=== PATIENT | female | born 1965 | race Caucasian/White ===

== ENCOUNTER → 2017-01-19 | Outpatient (CLI) | payer OTHER ==
--- NOTE | 2017-01-19 09:19 | WOMENS IMAGING REPORT ---
EXAM DESCRIPTION: BILAT SCREENING MAMMO W/CAD COMPLETED DATE/TIME: 01/19/2017 8:36 am REASON FOR STUDY: Z12.31, ROUTINE SCREENING MAMMO Z12.31 ENCNTR SCREEN MAMMOGRAM FOR MALIGNANT NEOP LASM OF KRIS COMPARISON: November 2015 TECHNIQUE: Standard craniocaudal and mediolateral oblique views of each breast recorded using [place] l acquisition. LIMITATIONS: None. FINDINGS: No masses, calcifications or architectural distortion. No areas of suspicion. Read with the assistance of CAD. .[facility] - R2 Cenova Version 1.3 .[facility] - R2 Cenova Version 1.3 .[facility] - R2 Cenova Version 2.4 .[facility] [place]2 Cenova Version 2.4 .[facility] - R2 Returned Item Clerk Version 9.2 IMPRESSION: NORMAL MAMMOGRAM. BIRADS 1. BREAST DENSITY: b. There are scattered areas of fibroglandular density. BIRAD: 1 NEGATIVE RECOMMENDATION: ROUTINE SCREENING COMMENT: The patient has been notified of the results by letter per MQSA requirements. Additional no tification policies are in place for contacting patient with suspicious or incomplete findings. Quality ID #[id number]: The [employer] recommends an annual screening mammogram for women aged 40 years or over. This facility utilizes a reminder system to ensure that all patients receive reminder letters, and/or direct phone calls for appointments. This includes reminders for routine scr eening mammograms, diagnostic mammograms, or other Breast Imaging Interventions when appropriate. Th is patient will be placed in the appropriate reminder system. The [employer] (ACR) has developed recommendations for screening MRI of the breast s in certain patient populations, to be used in conjunction with mammography. Breast MRI surveillanc e may be appropriate for women with more than 20% lifetime risk of developing breast cancer as deter mined by genetic testing, significant family history of the disease, or history of mantle radiation f or Hodgkins Disease. ACR Practice Guidelines 2008. TECHNICAL DOCUMENTATION: FINDING NUMBER: (1) ASSESSMENT: (1) JOB ID: [id number] [employer]- All Rights Reserved
== END ==
LOC: WI 11:24
PROVIDERS: ATTEND Physician Assistant
DX: Z12.31 Encounter for screening mammogram for malignant neoplasm of breast (principal)
CPT/HCPCS: 77067; G0202

== ENCOUNTER → 2017-01-28 | Outpatient (CLI) | payer OTHER ==
--- NOTE | 2017-01-28 10:37 | WOMENS IMAGING REPORT ---
EXAM DESCRIPTION: BONE DENSITY HIP/SPINE COMPLETED DATE/TIME: 01/28/2017 8:52 am REASON FOR STUDY: OSTEOPOROSIS; M81.0 M81.0 AGE-RELATED OSTEOPOROSIS W/O CURRENT PATHOLOGICAL FRAC COMPARISON: None. TECHNIQUE: Dual-Energy X-ray Absorptiometry (DEXA) of the AP Spine and Hip. LIMITATIONS: None. FINDINGS: LUMBAR SPINE: The bone mineral density (BMD) measured from L1-L4 in the AP projection correlates with a T-score of -0.2, which is normal as defined by the World Health Organization. HIP: The bone mineral density (BMD) measured in the left hip correlates with a T-score of -1.5, which is o steopenia as defined by the World Health Organization. IMPRESSION: 1. LUMBAR SPINE: NORMAL. 2. HIP: OSTEOPENIA. COMMENT: The World Health Organization defines low BMD as follows: T-score: Normal: Greater than -1.0 Osteopenia: Between -1.0 and -2.5 Osteoporosis: Less than -2.5 without fractures Established osteoporosis: Less than -2.5 with fractures In general, you may wish to consider: Diagnosis Treatment Follow-up DEXA Normal BMD Prevention 2-3 years Osteopenia Prevention/Therapy 1-2 years Osteoporosis Therapy Yearly TECHNICAL DOCUMENTATION: JOB ID: [id number] [employer]- All Rights Reserved
== END ==
LOC: WI 08:27
PROVIDERS: ATTEND Physician Assistant
DX: M81.0 Age-related osteoporosis without current pathological fracture (principal)
CPT/HCPCS: 77080

== ENCOUNTER 2017-01-31 00:23 | Observation (INO) | payer OTHER ==
--- NOTE | 2017-01-31 00:57 | ER Document Report ---
ED Medical Screen (RME) - General Chief Complaint: Chest Pain Stated Complaint: CHEST PAIN Time Seen by Provider: 01/31/17 00:53 Mode of Arrival: Wheelchair Information source: Patient Notes: 51-year-old female presents to ED for chest pain epigastric pain dizziness since 4 PM. She states the pain radiates to her left chest up to her jaw making her teeth hurt. She states she was just diagnosed with atrial fib but has not seen a specialist. She states she has been nauseated with diarrhea since 4 PM also. Patient has a history of high blood pressure and cholesterol. States mom and dad both have a history of [facility] patient is actively vomiting in the [place]. I have greeted and performed a rapid initial assessment of this patient. A comprehensive ED assessment and evaluation of the patient, analysis of test results and completion of medical decision making process will be conducted by an additional ED providers. TRAVEL OUTSIDE OF THE [place] IN LAST 30 DAYS: No - Related Data Allergies/Adverse Reactions: No Known Allergies Allergy (Verified 04/18/16 16:24) Past Medical History - Past Medical History Cardiac Medical History: Reports: Hx Hypercholesterolemia Denies: Hx Coronary Artery Disease, Hx Heart Attack, Hx Hypertension Pulmonary Medical History: Reports: Hx Asthma Denies: Hx Bronchitis, Hx COPD, Hx Pneumonia, Hx Tuberculosis Neurological Medical History: Denies: Hx Cerebrovascular Accident, Hx Seizures Endocrine Medical History: Reports: Hx Hypothyroidism Renal/ Medical History: Denies: Hx Peritoneal Dialysis Musculoskeltal Medical History: Reports Hx Arthritis Psychiatric Medical History: Reports: Hx Anxiety, Hx Depression Past Surgical History: Reports: Hx Hysterectomy - Immunizations Hx Diphtheria, Pertussis, Tetanus Vaccination: Yes Physical Exam - Vital signs Vitals: Pulse 107 H 01/31/17 00:36 Course - Vital Signs Vital signs: Temp Pulse Resp BP Pulse Ox 107 H 01/31/17 00:36
[2017-01-31] MEDS ORDERED: ONDANSETRON HCL INJ/PF 4 MG/2 ML SDV IM ONE (00:58)
[2017-01-31 02:14] LABS: APPEARANCE,URINE SLIGHTLY-CLOUDY; BILIRUBIN,URINE NEGATIVE (NEGATIVE); GLUCOSE, URINE NEGATIVE (NEGATIVE); KETONES,URINE NEGATIVE (NEGATIVE); LEUKOCYTE ESTERASE,URINE TRACE (NEGATIVE); NITRITE,URINE NEGATIVE (NEGATIVE); PROTEIN,URINE NEGATIVE (NEGATIVE); URINE SPECIFIC GRAVITY 1.017; UROBILINOGEN,URINE NEGATIVE mg/dL (<2.0)
[2017-01-31 02:19] LABS: ALANINE AMINOTRANSFERASE 47 U/L (9-52); ALBUMIN 4.6 g/dL (3.5-5.0); ALKALINE PHOSPHATASE 94 U/L (38-126); ANION GAP 13 (5-19); ASPARTATE AMINO TRANSFERASE 39 U/L (14-36); BILIRUBIN,DIRECT 0.3 mg/dL (0.0-0.4); BILIRUBIN,TOTAL 0.5 mg/dL (0.2-1.3); BLOOD UREA NITROGEN 16 mg/dL (7-20); CALCIUM 9.9 mg/dL (8.4-10.2); CARBON DIOXIDE 22 mmol/L (22-30); CHLORIDE 105 mmol/L (98-107); CREATINE KINASE 38 U/L (30-135); GLUCOSE 100 mg/dL (75-110); LIPASE 140.8 U/L (23-300); POTASSIUM 4.1 mmol/L (3.6-5.0); SODIUM 140.1 mmol/L (137-145); TOTAL PROTEIN 7.6 g/dL (6.3-8.2)
[2017-01-31 02:26] LABS: ABSOLUTE LYMPHOCYTES (AUTO) 3.2 10^3/uL (0.5-4.7); ABSOLUTE MONOCYTES (AUTO) 0.6 10^3/uL (0.1-1.4); ABSOLUTE NEUT (AUTO) 5.3 10^3/uL (1.7-8.2); BASOPHILS % (AUTO) 0.2 % (0-2); EOSINOPHILS % (AUTO) 0.1 % (0-6); HEMATOCRIT 40.1 % (36.0-47.0); HEMOGLOBIN 13.5 g/dL (12.0-15.5); HGB HCT DIFFERENCE 0.4; LYMPHOCYTES % (AUTO) 34.6 % (13-45); MEAN CORPUSCULAR HEMOGLOBIN 29.6 pg (27.0-33.4); MEAN CORPUSCULAR HGB CONC 33.6 g/dL (32.0-36.0); MEAN CORPUSCULAR VOLUME 88 fl (80-97); MONOCYTES % (AUTO) 7.1 % (3-13); RED BLOOD COUNT 4.56 10^6/uL (3.72-5.28); RED CELL DISTRIBUTION WIDTH 13.9 % (11.5-14.0); WHITE BLOOD COUNT 9.1 10^3/uL (4.0-10.5)
[2017-01-31 02:33] LABS: CREATINE KINASE MB < 0.22 ng/mL (<4.55); TROPONIN I < 0.012 ng/mL
--- NOTE | 2017-01-31 02:47 | ER Document Report ---
ED General - General Chief Complaint: Chest Pain Stated Complaint: CHEST PAIN Time Seen by Provider: 01/31/17 00:53 Mode of Arrival: Wheelchair Notes: Patient is a 51-year-old female presents with complaints of chest pain that is substernal and radiates into the left jaw and down her left arm and into her back. She says is been intermittent throughout the day. It is worse when she gets up and exerts herself. No pain. Some nausea. No diarrhea. No history of coronary disease. She says that her cholesterol did come back high recently at with her visit to her doctor. She is therefore been referred to a specialist. She does have a history of lupus. She is followed by Dr. Constantino and Marisol Nguyen. No previous history of heart cath or stress test. Patient took aspirin at 5 PM today. TRAVEL OUTSIDE OF THE [place] IN LAST 30 DAYS: No - Related Data Allergies/Adverse Reactions: No Known Allergies Allergy (Verified 04/18/16 16:24) Past Medical History - General Information source: Patient - Social History Smoking Status: Never Smoker Frequency of alcohol use: None Drug Abuse: None Family History: None, Reviewed & Not Pertinent Patient has suicidal ideation: No Patient has homicidal ideation: No - Past Medical History Cardiac Medical History: Reports: Hx Hypercholesterolemia Denies: Hx Coronary Artery Disease, Hx Heart Attack, Hx Hypertension Pulmonary Medical History: Reports: Hx Asthma Denies: Hx Bronchitis, Hx COPD, Hx Pneumonia, Hx Tuberculosis Neurological Medical History: Denies: Hx Cerebrovascular Accident, Hx Seizures Endocrine Medical History: Reports: Hx Hypothyroidism Renal/ Medical History: Denies: Hx Peritoneal Dialysis Musculoskeltal Medical History: Reports Hx Arthritis Psychiatric Medical History: Reports: Hx Anxiety, Hx Depression Past Surgical History: Reports: Hx Hysterectomy - Immunizations Hx Diphtheria, Pertussis, Tetanus Vaccination: Yes Hx Pneumococcal Vaccination: 07/04/12 Review of Systems - Review of Systems Notes: My Normal Review Basic REVIEW OF SYSTEMS: CONSTITUTIONAL : Denies fever, chills, or sweats. Denies recent illness. CARDIOVASCULAR: intermittent chest pain. RESPIRATORY: Denies cough, cold, or chest congestion. Denies shortness of breath, difficulty breathing, or wheezing. GASTROINTESTINAL: Denies abdominal pain. Denies nausea, vomiting, or diarrhea. Denies constipation. Last BM: GENITOURINARY: Denies difficulty urinating, painful urination, burning, frequency, or blood in urine. MUSCULOSKELETAL: Denies neck or back pain or joint pain or swelling. SKIN: Denies rash or skin lesions. NEUROLOGICAL: Denies altered mental status or loss of consciousness. Has a headache. Denies weakness or paralysis or loss of use of either side. Denies problems with gait or speech. Denies sensory or motor loss. ALL OTHER SYSTEMS REVIEWED AND NEGATIVE. Physical Exam - Vital signs Vitals: Temp Pulse Resp BP Pulse Ox 97.4 F 99 16 151/84 H 98 01/31/17 00:25 01/31/17 00:25 01/31/17 00:25 01/31/17 00:25 01/31/17 00:25 - Notes Notes: General Appearance: Well nourished, alert, cooperative, no acute distress, no obvious discomfort. Vitals: reviewed, See vital signs table. Head: no swelling or tenderness to the head Eyes: PERRL, EOMI, Conjuctiva clear Mouth: No decreasd moisture Chest wall: No reproducible pain to palpation of anterior chest wall. Lungs: No wheezing, No rales, No rhonci, No accessory muscle use, good air exchange bilaterally. Heart: Normal rate, Regular rythm, No murmur, no rub Abdomen: Normal BS, soft, No rigidity, No abdominal tenderness, No guarding, no rebound, no abdominal masses, no organomegaly Extremities: strength 5/5 in all extremities, good pulses in all extremities, no swelling or tenderness in the extremities, no edema. Skin: warm, dry, appropriate color, no rash Neuro: speech clear, oriented x 3, normal affect, responds appropriately to questions. Course - Re-evaluation Re-evalutation: 01/31/17 04:13 Patient complains to me of substernal chest pain rates into her jaw and into her left arm. Cardiac enzymes are negative. She did have some vomiting in the waiting room. Currently she has no pain to palpation of abdomen on my exam. She had slight pain for the nurse practitioner. She says her pain is sharp and intermittent and seems to be worse with exertion and she gets short of breath. Symptoms sound consistent possible coronary disease. Patient took aspirin prior to arrival. She is currently pain-free well-placed Nitropaste on her being that she says the pain will still sometimes intermittently occur. She is a private patient of Dr. Constantino. I did speak with Dr. Cary who agrees to accept the patient on behalf of Dr. Constantino. Dictation of this chart was performed using voice recognition software; therefore, there may be some unintended grammatical errors. 01/31/17 04:15 - Vital Signs Vital signs: Temp Pulse Resp BP Pulse Ox 97.4 F 107 H 8 L 126/68 H 97 01/31/17 00:25 01/31/17 00:36 01/31/17 04:01 01/31/17 04:01 01/31/17 04:01 - Laboratory Result Diagrams: 01/31/17 01:25 01/31/17 01:25 Laboratory results interpreted by me: 01/31/17 01/31/17 01:25 01:25 AST 39 H Ur Leukocyte Esterase TRACE H - EKG Interpretation by Me Additional EKG results interpreted by me: 01/31/17 02:46 EKG is reviewed and interpreted by me. EKG shows normal sinus rhythm with a rate of [address] segment elevation or depression. No ischemic T-wave inversions. NC interval, QRS duration, QTc intervals are within normal range. Old EKG for comparison is from November 08, 2014. Discharge - Discharge Clinical Impression: Chest pain Qualifiers: Chest pain type: unspecified Qualified Code(s): R07.9 - Chest pain, unspecified Condition: Stable Disposition: ADMITTED OBSERVATION Admitting Provider: Dougie Unit Admitted: Telemetry
--- NOTE | 2017-01-31 03:32 | EKG REPORT ---
SEVERITY:- ABNORMAL ECG - SINUS RHYTHM LEFT ATRIAL ABNORMALITY NONSPECIFIC T ABNORMALITIES, INFERIOR LEADS : Confirmed by: Kiara Olivas MD 31-Jan-2017 03:31:31
[2017-01-31] MEDS ORDERED: NITROGLYCERIN 2% OINTMENT 1 GM PACKET TP ONE (04:11)
--- NOTE | 2017-01-31 04:20 | RADIOLOGY REPORT (SQ) ---
EXAM DESCRIPTION: CHEST PA/LAT COMPLETED DATE/TIME: 01/31/2017 3:58 am REASON FOR STUDY: chest pain COMPARISON: 11/08/2014. EXAM PARAMETERS: NUMBER OF VIEWS: two views TECHNIQUE: Digital Frontal and Lateral radiographic views of the chest acquired. RADIATION DOSE: NA LIMITATIONS: none FINDINGS: LUNGS AND PLEURA: No opacities, masses or pneumothorax. No pleural effusion. MEDIASTINUM AND HILAR STRUCTURES: No masses or contour abnormalities. HEART AND VASCULAR STRUCTURES: Heart normal size. No evidence for failure. BONES: No acute findings. HARDWARE: None in the chest. OTHER: No other significant finding. IMPRESSION: NO SIGNIFICANT RADIOGRAPHIC FINDING IN THE CHEST. TECHNICAL DOCUMENTATION: JOB ID: [id number] [employer]- All Rights Reserved
[2017-01-31 08:03] LABS: CREATINE KINASE MB < 0.22 ng/mL (<4.55); TROPONIN I < 0.012 ng/mL
[2017-01-31 14:50] LABS: CREATINE KINASE MB < 0.22 ng/mL (<4.55); TROPONIN I < 0.012 ng/mL
[2017-01-31] MEDS ORDERED: ONDANSETRON 4 MG TAB.RAPDIS PO PRN (20:11)
[2017-01-31] MEDS ORDERED: BUDESONIDE/FORMOTEROL 80-4.5 MCG 60 PUFF/6.9 GM MDI IH PRN (20:11)
[2017-01-31] MEDS ORDERED: IPRATROPIUM/ALBUTEROL 0.5-2.5 MG/3 ML AMPUL NEB PRN (20:13)
[2017-01-31] MEDS: OXYCODONE HCL IR 5 MG TABLET PO SCH (21:36)
[2017-01-31] MEDS: HYDROXYZINE PAMOATE 25 MG CAPSULE PO SCH (21:36)
[2017-01-31 21:53] LABS: CREATINE KINASE MB < 0.22 ng/mL (<4.55); TROPONIN I < 0.012 ng/mL
[2017-01-31] MEDS ORDERED: (PENDING PHARMACY ID) (Hydroxyzine Hcl [Hydroxyzine Hcl] 25 MG) PO SCH (22:00)
[2017-02-01] MEDS: OXYCODONE HCL IR 5 MG TABLET PO SCH ×6 (01:44→22:22)
[2017-02-01 03:03] LABS: CREATINE KINASE MB < 0.22 ng/mL (<4.55); TROPONIN I < 0.012 ng/mL
--- NOTE | 2017-02-01 08:03 | EKG REPORT ---
SEVERITY:- NORMAL ECG - SINUS RHYTHM : Confirmed by: Rory Montgomery MD 01-Feb-2017 08:02:59
--- NOTE | 2017-02-01 08:45 | PDOC H&P ---
History of Present Illness Admission Date/PCP: 01/31/17 06:26 OTONIEL ZARCO MD Patient complains of: Chest pain History of Present Illness: VEORNICA ZARATE is a 51 year old female This is a 51-year-old female with a significant history of the anxiety and the depression with recently have a some more allergy testings and off the certain depression medicationsCame to the emergency department with a complaint of chest pain for more than 24 hours describing when the left-sided and radiating to the left arm.In the emergency department initial EKG and cardiac enzyme was all negative and patient was decided to admit for rule out acute coronary syndromePatient was also giving nitro patch which according to the patient's to relieve the symptoms Patient's otherwise denied chest pain when I saw to the floor denied any shortness of the breath Past Medical History Cardiac Medical History: Reports: Hyperlipidema Denies: Coronary Artery Disease, Myocardial Infarction, Hypertension Pulmonary Medical History: Reports: Asthma Denies: Bronchitis, Chronic Obstructive Pulmonary Disease (COPD), Pneumonia, Tuberculosis Neurological Medical History: Denies: Seizures Endocrine Medical History: Reports: Hypothyroidism Musculoskeltal Medical History: Reports: Arthritis Psychiatric Medical History: Reports: Depression, General Anxiety Disorder Hematology: Denies: Anemia Past Surgical History Past Surgical History: Reports: Hysterectomy Social History Smoking Status: Never Smoker Frequency of Alcohol Use: None Hx Recreational Drug Use: No Drugs: None Hx Prescription Drug Abuse: No - Advance Directive Resuscitation Status: Full Code Family History Family History: None, Reviewed & Not Pertinent Parental Family History Reviewed: Yes Children Family History Reviewed: Yes Sibling(s) Family History Reviewed.: Yes Medication/Allergy Home Medications: Estrogens, Conjugated [Premarin 0.9 mg Tablet] 0.9 mg PO DAILY 09/17/13 Sertraline HCl 100 mg PO DAILY 09/17/13 Budesonide/Formoterol Fumarate [Symbicort HFA 80-4.5 mcg Inhaler 6.9 gm] 2 puff IH BID PRN 11/08/14 Levothyroxine Sodium [Synthroid 0.025 mg Tablet] 100 mcg PO DAILY 11/08/14 Oxycodone HCl 5 mg PO Q4H 11/24/15 Aspirin [Ecotrin] 81 mg PO DAILY 11/25/15 Gabapentin [Gabapentin] 800 mg PO DAILY 01/31/17 Hydroxychloroquine Sulfate [Plaquenil 200 mg Tablet] 200 mg PO BID 01/31/17 Hydroxyzine HCl [Hydroxyzine HCl] 25 mg PO QID 01/31/17 Ondansetron [Ondansetron Odt] 4 mg PO Q8HP PRN 01/31/17 Prednisone [Prednisone] 5 mg PO DAILY 01/31/17 Selenium Sulfide [Selenium Sulfide] 1 applic TOP TID 01/31/17 Allergies/Adverse Reactions: No Known Allergies Allergy (Verified 04/18/16 16:24) Review of Systems Constitutional: PRESENT: fatigue. ABSENT: chills, fever(s), headache(s), weight gain, weight loss Eyes: ABSENT: visual disturbances Ears: ABSENT: hearing changes Cardiovascular: PRESENT: chest pain. ABSENT: dyspnea on exertion, edema, orthropnea, palpitations Respiratory: ABSENT: cough, hemoptysis Gastrointestinal: ABSENT: abdominal pain, constipation, diarrhea, hematemesis, hematochezia, nausea, vomiting Genitourinary: ABSENT: dysuria, hematuria Musculoskeletal: ABSENT: joint swelling Integumentary: ABSENT: rash, wounds Neurological: ABSENT: abnormal gait, abnormal speech, confusion, dizziness, focal weakness, syncope Psychiatric: PRESENT: anxiety, depression. ABSENT: homidical ideation, suicidal ideation Endocrine: ABSENT: cold intolerance, heat intolerance, menstrual abnormalities, polydipsia, polyuria Hematologic/Lymphatic: ABSENT: easy bleeding, easy bruising, lymphadenopathy Physical Exam Vital Signs: Temp Pulse Resp BP Pulse Ox 97.7 F 66 14 115/62 97 02/01/17 08:00 02/01/17 08:11 02/01/17 08:11 02/01/17 08:00 02/01/17 08:11 Intake & Output 01/31/17 02/01/17 02/02/17 06:59 06:59 06:59 Intake Total 842 Output Total 1300 Balance -458 Weight 73.9 kg General appearance: PRESENT: no acute distress, well-developed, well-nourished Head exam: PRESENT: atraumatic, normocephalic Eye exam: PRESENT: conjunctiva pink, EOMI, PERRLA. ABSENT: scleral icterus Ear exam: PRESENT: normal external ear exam Mouth exam: PRESENT: moist, tongue midline Neck exam: PRESENT: full ROM. ABSENT: carotid bruit, JVD, lymphadenopathy, thyromegaly Respiratory exam: PRESENT: clear to auscultation immanuel Cardiovascular exam: PRESENT: RRR. ABSENT: diastolic murmur, rubs, systolic murmur Pulses: PRESENT: normal dorsalis pedis pul, +2 pedal pulses bilateral Vascular exam: PRESENT: normal capillary refill GI/Abdominal exam: PRESENT: normal bowel sounds, soft. ABSENT: distended, guarding, mass, organolmegaly, rebound, tenderness Rectal exam: PRESENT: deferred Neurological exam: PRESENT: alert, awake, oriented to person, oriented to place , oriented to time, oriented to situation, CN II-XII grossly intact. ABSENT: motor sensory deficit Psychiatric exam: PRESENT: appropriate affect, normal mood. ABSENT: homicidal ideation, suicidal ideation Skin exam: PRESENT: dry, intact, warm. ABSENT: cyanosis, rash Results Laboratory Results: 01/31/17 01/31/17 01/31/17 07:12 07:12 14:02 Creatine Kinase 30 27 L CK-MB (CK-2) < 0.22 Troponin I < 0.012 01/31/17 01/31/17 01/31/17 14:02 20:35 20:35 Creatine Kinase 27 L CK-MB (CK-2) < 0.22 < 0.22 Troponin I < 0.012 < 0.012 02/01/17 02/01/17 02:25 02:25 Creatine Kinase 25 L CK-MB (CK-2) < 0.22 Troponin I < 0.012 Impressions: Chest X-Ray 01/31/17 00:58 IMPRESSION: NO SIGNIFICANT RADIOGRAPHIC FINDING IN THE CHEST. Assessment & Plan - Diagnosis (1) Chest pain Qualifiers: Chest pain type: unspecified Qualified Code(s): R07.9 - Chest pain, unspecified Is this a current diagnosis for this admission?: YesPlan: Most likely a noncardiac but without some risk factor will consult the cardiology patient scheduled for the stress test today and echo todayPatient's d -dimer is also negative (2) Hypertension Qualifiers: Hypertension type: essential hypertension Qualified Code(s): I10 - Essential (primary) hypertension Is this a current diagnosis for this admission?: YesPlan: Currently stable (3) Hyperlipidemia Qualifiers: Hyperlipidemia type: unspecified Qualified Code(s): E78.5 - Hyperlipidemia, unspecified (4) Anxiety disorder Qualifiers: Anxiety disorder type: generalized anxiety disorder Qualified Code(s ): F41.1 - Generalized anxiety disorder Is this a current diagnosis for this admission?: YesPlan: Patient certainly wean off of the same medications due to the allergy testings and going back to certain medications again (5) Depression Qualifiers: Depression Type: major depressive disorder Is this a current diagnosis for this admission?: YesPlan: Patients follow with the psych - Time Time Spent: 30 to 50 Minutes Medications reviewed and adjusted accordingly: Yes Anticipated discharge: Home Within: within 24 hours - Inpatient Certification Medical Necessity: Need Close Monitoring Due to Risk of Patient Decompensation Post Hospital Care: D/C Laboratory Asst Documentation - Plan Summary Plan Summary: Patient scheduled for the stress test and echo and cardiology consult
[2017-02-01] MEDS: PREDNISONE 5 MG TABLET PO SCH (09:23)
[2017-02-01] MEDS: ASPIRIN 81 MG TABLET, ENT COATED PO SCH (09:23)
[2017-02-01] MEDS: HYDROXYZINE PAMOATE 25 MG CAPSULE PO SCH ×4 (09:23→22:22)
[2017-02-01] MEDS: GABAPENTIN 400 MG CAPSULE PO SCH (09:23)
[2017-02-01 09:34] LABS: CREATINE KINASE MB < 0.22 ng/mL (<4.55); TROPONIN I < 0.012 ng/mL
[2017-02-01] MEDS ORDERED: SELENIUM SULFIDE TOP SCH (10:00)
[2017-02-01] MEDS ORDERED: ESTROGENS CONJUGATED 0.9 MG PO SCH (10:00)
[2017-02-01] MEDS ORDERED: SERTRALINE HCL 50 MG TABLET PO SCH ×2 (10:00→22:00)
[2017-02-01 11:12] LABS: CHOLESTEROL 179.27 mg/dL (0-200); Direct HDL 86 mg/dL (>40); TRIGLYCERIDES 104 mg/dL (<150)
[2017-02-01 11:26] LABS: DIRECT LDL 60 mg/dL (<100)
[2017-02-01] MEDS: ENOXAPARIN SODIUM INJ 40 MG/0.4 ML DISP.SYRIN SUBCUT SCH (11:31)
[2017-02-01] MEDS: LEVOTHYROXINE SODIUM 0.1 MG TABLET PO SCH (11:31)
[2017-02-01] MEDS: ESTROGENS,CONJUGATED 0.3 MG TABLET PO SCH (11:33)
[2017-02-01] MEDS: HYDROXYCHLOROQUINE SULFATE 200 MG TABLET PO SCH ×3 (11:33→22:20)
--- NOTE | 2017-02-01 12:57 | DRAGON STRESS TEST REPORT ---
INTRAVENOUS LEXISCAN CARDIOLITE STRESS TEST USING SINGLE PHOTON EMMISION COMPUTERIZED TOMOGRAPHIC. DATE OF PROCEDURE: February 01, 2017 INDICATION : Chest pain CARDIAC RISK FACTORS: Dyslipidemia, positive family history of premature atherosclerosis. RESTING EKG: Sinus rhythm without any baseline ST-T wave changes. STRESS EKG: No significant changes noted with LexiScan bolus REASON FOR TERMINATION: Protocol. PROCEDURE REPORT: Baseline heart rate 72 beats per minute with blood pressure of 118/75. Patient had no significant complaints. Heart rate at 2 minutes post bolus 126 with a blood pressure of 133/87. 3 minutes post bolus heart rate 106 with blood pressure of 146/76. No significant EKG changes were noted. Patient had no significant complaints during the procedure or postprocedure. Patient injected with Aminophyllin 75 mg at 3 minutes or later after Lexiscan bolus. CONCLUSIONS: Normal EKG and hemodynamic response to IV LexiScan. NUCLEAR DATA: At rest the patient was given 10.46 millicuries of technetium 99 sestamibi injected intravenously. As per protocol rest gated SPECT images were obtained. Subsequently the patient was given intravenous LexiScan at a dose of 0.4 mg in 5 mL intravenously, followed by flush with normal saline. Subsequently the stress dose of 32.4 millicuries of technetium 99 sestamibi was injected intravenously. As per protocol stress gated images were obtained. NUCLEAR INTERPRETATION: Both raw and processed data were used for interpretation. Visual, qualitative, computer-generated quantitative data was used. There was good myocardial uptake of technetium compound. Motion artifact and soft tissue attenuations were noted. Increased visceral uptake was noted. No definitive areas of transient perfusion defect noted. No definitive areas of fixed perfusion defect or scars noted. EKG gated imaging showed LV EF at 60] %, rest and stress gated EF similar visually. T. I D. ratio was 1.10. Lung heart ratio noted to be within normal limits 0.28. No significant extracardiac and abnormal radiotracer activities were noted. RV free wall uptake was noted to be borderline increased. IMPRESSION: Also refer to comments under nuclear interpretation. Also test results needs to be interpreted in the context of pretest probability. 1. There is no definitive scintigraphic evidence of LexiScan induced myocardial ischemia. 2. There is no definitive scintigraphic evidence of myocardial infarction/scar. 3. EKG gated imaging shows left ejection fraction of approximately 60 %. 4. Clinical correlation requested as occasionally single vessel disease or balanced ischemia could be missed. In approximately 10% of the cases Lexiscan may not cause adequate vasodilatory stress. RECOMMENDATIONS: Aggressive risk factor modification, medical therapy. Clinical correlation with echocardiogram derived ejection fraction. Inability to exercise by itself can lead to increased cardiovascular event risks. Consider cardiology consultation and or follow-up if clinically indicated. I AM AVAILABLE FOR CARDIOLOGY CONSULTATION AND FOLLOWUP IF REQUESTED BY PMD Jerman Aj M.D., SARAH Middleware Architect [employer] in, Board certified in cardiovascular diseases, Nuclear cardiology, Echocardiography Cardiac CT and cardiac MRI Ph. [phone] [facility]
--- NOTE | 2017-02-01 13:32 | XCELERA REPORT ---
[address] [address] Transthoracic Echocardiogram Report Name: VERONICA ZARATE Age: 51 yrs Gender: Female : 1965 Patient Status: Inpatient Patient Location: 4S\S\426\S\B Study Date: 02/01/2017 10:36 AM Height: 66 in Weight: 157 lb BSA: 1.8 m2 Procedure: A complete two-dimensional transthoracic echocardiogram was performed (2D, M-mode, spectral and color flow Doppler). The study was technically difficult with many images being suboptimal in quality. Reason For Study: chest pain Ordering Physician: OTONIEL ZARCO Performed By: Breanna Hernández Interpretation Summary Left ventricular systolic function is low normal. There is normal left ventricular wall thickness. The left ventricle is grossly normal size. Doppler measurements suggest impaired left ventricular relaxation, which is associated with grade I/IV or mild diastolic dysfunction Wall motion cannot be accurately commented on, but no definite regional wall motion abnormalities noted. The right ventricular systolic function is normal. The right atrium is normal. The left atrial size is normal. There is no mitral valve stenosis. There is a trace amount of mitral regurgitation No aortic regurgitation is present. There is no aortic valve stenosis There is a trace or physiologic amount of tricuspid regurgitation Tricuspid regurgitation jet envelope not well defined to measure RV systolic pressure accurately. The aortic root is not well visualized but is probably normal size. The inferior vena cava appeared normal and decreased > 50% with respiration (RAP 5-10 mmHg) There is no pericardial effusion. MMode/2D Measurements \T\ Calculations RVDd: 2.2 cm LVIDd: 3.8 cm FS: 28.8 % Ao root diam: 3.4 cm IVSd: 0.94 cm LVIDs: 2.7 cm EDV(Teich): 63.6 ml LVPWd: 0.89 cmESV(Teich): 27.9 ml Ao root area: 8.9 cm2 EF(Teich): 56.1 % LA dimension: 3.0 cm LVOT diam: 2.3 cm LVOT area: 4.3 cm2 Doppler Measurements \T\ Calculations MV E max angela: MV P1/2t max angela: Ao V2 max: LV V1 max P.5 cm/sec 89.8 cm/sec 102.9 cm/sec 2.7 mmHg MV A max angela: MV P1/2t: 54.0 msec Ao max PG: LV V1 max: 72.7 cm/sec MVA(P1/2t): 4.1 cm2 4.2 mmHg 82.5 cm/sec MV E/A: 1.2 MV dec slope: NICHOLE(V,D): 3.4 cm2 486.8 cm/sec2 PA V2 max: TR max angela: 66.8 cm/sec 245.4 cm/sec PA max PG: TR max P.1 mmHg 1.8 mmHg Left Ventricle The left ventricle is grossly normal size. There is normal left ventricular wall thickness. Left ventricular systolic function is low normal. Doppler measurements suggest impaired left ventricular relaxation, which is associated with grade I/IV or mild diastolic dysfunction. Wall motion cannot be accurately commented on, but no definite regional wall motion abnormalities noted. Right Ventricle The right ventricle is grossly normal size. There is normal right ventricular wall thickness. The right ventricular systolic function is normal. Atria The right atrium is normal. The left atrial size is normal. Interarterial septum not well visualized and not well dopplered. Cannot comment on ASD/PFO presence. Mitral Valve The mitral valve is grossly normal. There is no mitral valve stenosis. There is a trace amount of mitral regurgitation. Aortic Valve The aortic valve is grossly normal. There is no aortic valve stenosis. No aortic regurgitation is present. Tricuspid Valve The tricuspid valve is not well visualized secondary to technical limitations. There is no tricuspid stenosis. There is a trace or physiologic amount of tricuspid regurgitation. Tricuspid regurgitation jet envelope not well defined to measure RV systolic pressure accurately. Pulmonic Valve The pulmonic valve is not well visualized. Great Vessels The aortic root is not well visualized but is probably normal size. The inferior vena cava appeared normal and decreased > 50% with respiration (RAP 5-10 mmHg). Effusions There is no pericardial effusion. : OTONILE ZARCO > Jerman Aj
--- NOTE | 2017-02-01 13:58 | RADIOLOGY REPORT (SQ) ---
EXAM DESCRIPTION: CTA CHEST COMPLETED DATE/TIME: 02/01/2017 1:37 pm REASON FOR STUDY: chest pain COMPARISON: 11/08/2014. TECHNIQUE: CT scan of the chest performed using helical scanning technique with dynamic intravenous contrast injection. Images reviewed with lung, soft tissue and bone windows. Reconstructed coronal and sagittal MPR images reviewed. Additional 3 dimensional post-processing performed to develop Maximal Intensity Projection images (NE P). All images stored on PACS. All CT scanners at this facility use dose modulation, iterative reconstruction, and/or weight based d osing when appropriate to reduce radiation dose to as low as reasonably achievable (ALARA). [facility]: Dose Right [facility]: CareDose [facility]: Dose Right [facility]: Teradose 4D [facility]: Tugende CONTRAST TYPE AND DOSE: contrast/concentration: Isovue 370.00 mg/ml; Total Contrast Delivered: 63.0 ml; Total Saline Delivered: 108.1 ml RENAL FUNCTION: BUN 16 creatinine 0.7. RADIATION DOSE: Up-to-date CT equipment and radiation dose reduction techniques were employed. CTDIv ol: 7.4 - 11.3 mGy. DLP: 292 mGy-cm. . LIMITATIONS: None. FINDINGS: LUNGS AND PLEURA: No masses, infiltrates, pneumothorax. No pleural effusions, calcificati ons. AORTA AND GREAT VESSELS: No aneurysm or dissection. HEART: No pericardial effusion. PULMONARY ARTERIES: No emboli visualized in the main pulmonary arteries or the segmental branches. HILAR AND MEDIASTINAL STRUCTURES: No identified masses or abnormal nodes. HARDWARE: None in the chest. UPPER ABDOMEN: 4 mm calyceal calculus in the right kidney, not completely imaged. Limited exam. THYROID AND OTHER SOFT TISSUES: No masses. No adenopathy. BONES: No acute or significant finding. 3D MIPS: Confirm above findings. OTHER: No other significant finding. IMPRESSION: NORMAL CTA OF THE CHEST. NO PULMONARY EMBOLI. 4 MM CALYCEAL CALCULUS IN THE RIGHT KIDNEY, NOT COMPLETELY IMAGED. TECHNICAL DOCUMENTATION: JOB ID: [id number] Quality ID # [id number]: Final reports with documentation of one or more dose reduction techniques (e.g., Au tomated exposure control, adjustment of the mA and/or kV according to patient size, use of iterative reconstruction technique) 2010 [employer]- All Rights Reserved
[2017-02-01] MEDS ORDERED: REGADENOSON INJ 0.4 MG/5 ML DISP.SYRIN IV ONE (14:06)
[2017-02-01] MEDS ORDERED: AMINOPHYLLINE INJ/PF 250 MG/10 ML SDV IV ONE (14:06)
--- NOTE | 2017-02-01 14:15 | PDOC CONSULTATION ---
Consultation Consult Date: 02/01/17 Attending physician:: OTONIEL ZARCO Consult reason:: Chest Pain History of Present Illness Admission Date/PCP: 01/31/17 06:26 OTONIEL ZARCO MD Patient complains of: Chest pain History of Present Illness: VERONICA ZARATE is a 51 year old female with a significant history of the anxiety and the depression with recently have a some more allergy testings and off the certain depression medications. Came to the emergency department with a complaint of chest pain for more than 24 hours describing when the left-sided and radiating to the left arm. In the emergency department initial EKG and cardiac enzyme was all negative and patient was decided to admit for rule out acute coronary syndrome. Patient was also giving nitro patch which according to the patient's to relieve the symptoms Patient's otherwise denied chest pain when seen on the floor denied any shortness of the breath. Patient claims that few weeks ago she was noted on EKG to have a spell of atrial fibrillation and an outpatient appointment was made for her to be evaluated at [facility]. Patient also describes history of intermittent leg edema. Patient however denied any prior history of myocardial infarction, angina, blood clots in the legs are in the lungs. Patient does describe history of difficulty falling asleep and staying asleep. She also describes history of daytime fatigue and sleepiness. This history was obtained by patient interview, chart review and confirmed. Past Medical History Cardiac Medical History: Reports: Hyperlipidema Denies: Coronary Artery Disease, Myocardial Infarction, Hypertension Pulmonary Medical History: Reports: Asthma Denies: Bronchitis, Chronic Obstructive Pulmonary Disease (COPD), Pneumonia, Tuberculosis Neurological Medical History: Denies: Seizures Endocrine Medical History: Reports: Hypothyroidism Musculoskeltal Medical History: Reports: Arthritis Psychiatric Medical History: Reports: Depression, General Anxiety Disorder Hematology: Denies: Anemia Past Surgical History Past Surgical History: Reports: Hysterectomy Social History Information Source: Patient Smoking Status: Never Smoker Frequency of Alcohol Use: None Hx Recreational Drug Use: No Drugs: None Hx Prescription Drug Abuse: No - Advance Directive Resuscitation Status: Full Code Surrogate healthcare decision maker:: Patient spouse is a surrogate decision maker Family History Family History: None, CAD Parental Family History Reviewed: Yes Children Family History Reviewed: Yes Sibling(s) Family History Reviewed.: Yes Medication/Allergy Home Medications: Estrogens, Conjugated [Premarin 0.9 mg Tablet] 0.9 mg PO DAILY 03/17/14 Sertraline HCl 100 mg PO DAILY 09/17/13 Budesonide/Formoterol Fumarate [Symbicort HFA 80-4.5 mcg Inhaler 6.9 gm] 2 puff IH BID PRN 11/08/14 Levothyroxine Sodium [Synthroid 0.025 mg Tablet] 100 mcg PO DAILY 11/08/14 Oxycodone HCl 5 mg PO Q4H 11/24/15 Aspirin [Ecotrin] 81 mg PO DAILY 11/25/15 Gabapentin 800 mg PO DAILY 01/31/17 Hydroxychloroquine Sulfate [Plaquenil 200 mg Tablet] 200 mg PO BID 01/31/17 Hydroxyzine HCl 25 mg PO QID 01/31/17 Ondansetron [Ondansetron Odt] 4 mg PO Q8HP PRN 01/31/17 Prednisone 5 mg PO DAILY 01/31/17 Selenium Sulfide 1 applic TOP TID 01/31/17 Allergies/Adverse Reactions: No Known Allergies Allergy (Verified 04/18/16 16:24) Review of Systems Review of Systems: Please see history of present illness and past medical history as wall. Constitutional: No fever or chills reported. Head : No recent chronic headaches, recent head injury. Eyes: No recent eye pain, diplopia, redness, discharge, acute visual changes. Ears: No recent chronic ear pain, acute hearing loss, ear discharge. Oral cavity: No recent ulcerations, bleeding, oral cavity discomfort. Neck: No recent acute neck pain reported. Hematologic: No recent easy bruising or bleeding or hematologic malignancy reported. Lymphatic: No recent lymphatic malignancy, chronic lymphadenopathy reported yet Cardiovascular system review: See history of present illness. Respiratory system review: No recent chronic cough, hemoptysis, blood clots in the lungs reported. Mild Shortness of breath on exertion Gastrointestinal system review: Negative for any recent acute or chronic abdominal pain, hematemesis, melena, recent change in bowel habits. Genitourinary system review: No recent acute or chronic hematuria, flank pain, UTI etc. reported. Skin system review: Negative for any recent abnormal bruising, no rash, no pruritus reported. Neurologic: No prior history of strokes, mini strokes, seizure disorder. History of sleeping difficulty. Psychologic: No history of major psychosis or major depression reported. History of minor depression. Musculoskeletal: Minor aches and pains reported. No acute joint swelling reported. Endocrine: No recent polyuria, polydipsia, recent heat or cold intolerance. Physical Exam Vital Signs: Temp Pulse Resp BP Pulse Ox 97.7 F 66 14 115/62 97 02/01/17 08:00 02/01/17 08:11 02/01/17 08:11 02/01/17 08:00 02/01/17 08:11 Intake & Output 01/31/17 02/01/17 02/02/17 06:59 06:59 06:59 Intake Total 842 Output Total 1300 Balance -458 Weight 73.9 kg Exam: GENERAL: well-nourished and in no acute distress. Alert and oriented x3 HEAD: Atraumatic, normocephalic. EYES: Pupils equal round and reactive to light, extraocular movements intact, sclera anicteric, conjunctiva are normal. ENT: TMs normal, nares patent, oropharynx clear without exudates. Moist mucous membranes. No oral ulcerations or bleeding gums noted NECK: supple without lymphadenopathy. Trachea is central. No cervical or axillary lymphadenopathy noted. Carotids are 2+, JVD WNL LUNGS: Respiration seems nonlabored, no significant accessory muscle action noted. Breath sounds clear to auscultation bilaterally and equal noted. No wheezes rales or rhonchi noted. No significant dullness noted on percussion. CHEST: Palpation of the chest wall shows no significant chest wall tenderness. No other significant abnormalities noted. HEART: [employer] TOOL DESIGN, No PSH, 1/6 FOZIA aortic area, 1/6 grande systolic murmur mitral area, no rubs, no gallops. ABDOMEN: Soft, no significant tenderness appreciated, normoactive bowel sounds. No guarding, no rebound. No rigidity noted . No masses appreciated. EXTREMITIES: Pedal pulses are 1-2+, no calf tenderness noted. No clubbing or cyanosis.trace to 1+ pedal edema noted NEUROLOGICAL: Focused neurological exam showed no significant neurologic deficit. Normal speech, no focal weakness appreciated. PSYCH: Normal mood, normal affect. Judgment and insight within normal limits. SKIN: No significant ecchymosis, rash, ulcerations or signs of pruritus noted. MUSCULOSKELETAL EXAM: No significant joint swelling noted. Results Laboratory Results: 01/31/17 01/31/17 01/31/17 07:12 07:12 14:02 Creatine Kinase 30 27 L CK-MB (CK-2) < 0.22 Troponin I < 0.012 01/31/17 01/31/17 01/31/17 14:02 20:35 20:35 Creatine Kinase 27 L CK-MB (CK-2) < 0.22 < 0.22 Troponin I < 0.012 < 0.012 02/01/17 02/01/17 02/01/17 02:25 02:25 08:40 Creatine Kinase 25 L 24 L CK-MB (CK-2) < 0.22 Troponin I < 0.012 02/01/17 08:40 Creatine Kinase CK-MB (CK-2) < 0.22 Troponin I < 0.012 EKG Comments: Twelve-lead EKG shows sinus rhythm, no acute ST-T wave changes are noted. Impressions: Chest X-Ray 01/31/17 00:58 IMPRESSION: NO SIGNIFICANT RADIOGRAPHIC FINDING IN THE CHEST. Assessment & Plan - Diagnosis (1) Chest pain Qualifiers: Chest pain type: unspecified Qualified Code(s): R07.9 - Chest pain, unspecified Is this a current diagnosis for this admission?: Yes (2) Anxiety disorder Qualifiers: Anxiety disorder type: generalized anxiety disorder Qualified Code(s ): F41.1 - Generalized anxiety disorder Is this a current diagnosis for this admission?: Yes (3) Hyperlipidemia Qualifiers: Hyperlipidemia type: unspecified Qualified Code(s): E78.5 - Hyperlipidemia, unspecified (4) Hypertension Qualifiers: Hypertension type: essential hypertension Qualified Code(s): I10 - Essential (primary) hypertension Is this a current diagnosis for this admission?: Yes (5) Sleep disorder Is this a current diagnosis for this admission?: Yes - Notes Notes: Chest pain: Patient has some typical and atypical features of chest pain. Cardiac enzymes so far has been negative. Electrocardiogram did not show any definitive ST segment changes. Multiple differential diagnoses exist in this patient. In descending order of probability this includes underlying coronary artery disease, gastroesophageal reflux, musculoskeletal pain, referred pain from elsewhere, anxiety panic disorder etc.Patient has significant cardiac risk factors, which indicates that there is a intermediate probability of chest discomfort coming from underlying CAD. Feel that it would need to be evaluated further. Discussed evaluation to assess this. In this regard risk benefits of nuclear stress test and other alternative processes were discussed in detail. The patient prefers to undergo nuclear stress test. The small risk of radiation , myocardial infarction, , cardiac arrhythmias, respiratory distress etc. were discussed. Patient understood the risks and gave informed consent. Nuclear stress test was therefore proceeded with. For risk evaluation, patient is also being scheduled for a 2-D echocardiogram. Patient questions were answered. Anxiety depression: Recommend SSRI agent. Patient may also benefit from anxiolytic. Hyperlipidemia: LDL goal is less than 100. Recommend statin therapy at least intermediate or high dose, of high potency status. Periodic lipid panel and liver panel is indicated. Patient to report any significant muscle discomfort or other side effects. Hypertension: Reasonably well controlled. Blood pressure goal in this patient is 135/85 or less. This was discussed with the patient. Currently blood pressure under reasonable control. Better medication for this patient are IVELISSE inhibitor/ARB/beta bib etc. discussed side effects of uncontrolled hypertension and also severe hypotension. Sleep disorder: Patient has difficulty falling asleep and staying asleep. She also has daytime fatigue and sleepiness. There is history of intermittent snoring. Patient will benefit from a sleep study as an outpatient. This was discussed with the patient and also increased risk of cardiovascular event risk with sleep disorder both sleep apnea and insomnia was discussed. - Time Time Spent: 50 to 70 Minutes - Nuclear stress test procedure was discussed and explained to the patient. Risk benefits were discussed. Patient agreed to proceed with the procedure. Patient also being scheduled for a 2D echocardiogram. CODE STATUS was discussed, patient remains full code. Surrogate decision-maker patient's . Multiple medical problems were addressed. More than 50% of the time spent coordinating care, discussing management plans with involved caregivers. Management plans discussed with involved personnels. Medical decision making was of moderate to high complexity , patient's has multiple comorbidities. Approximate total time spent was 50 minutes. Medications reviewed and adjusted accordingly: Yes
[2017-02-01 15:45] LABS: CREATINE KINASE MB < 0.22 ng/mL (<4.55); TROPONIN I < 0.012 ng/mL
[2017-02-02] MEDS: OXYCODONE HCL IR 5 MG TABLET PO SCH ×2 (01:34→09:06)
[2017-02-02 05:45] LABS: HEMATOCRIT 37.8 % (36.0-47.0); HEMOGLOBIN 12.7 g/dL (12.0-15.5); HGB HCT DIFFERENCE 0.3; MEAN CORPUSCULAR HEMOGLOBIN 29.7 pg (27.0-33.4); MEAN CORPUSCULAR HGB CONC 33.7 g/dL (32.0-36.0); MEAN CORPUSCULAR VOLUME 88 fl (80-97); RED BLOOD COUNT 4.29 10^6/uL (3.72-5.28); RED CELL DISTRIBUTION WIDTH 13.6 % (11.5-14.0); WHITE BLOOD COUNT 7.3 10^3/uL (4.0-10.5)
[2017-02-02 08:35] VITALS: BP 130/68
--- NOTE | 2017-02-02 08:41 | PDOC DISCHARGE SUMMARY ---
General - Admit/Disc Date/PCP Admission Date/Primary Care Provider: 01/31/17 06:26 OTONIEL ZARCO MD Discharge Date: 02/02/17 - Discharge Diagnosis (1) Chest pain Is this a current diagnosis for this admission?: YesSummary: All cardiac workup is negative Cardiolite Stress test is negative and CTA is negative and patients denied any chest pain anymore most likely underlying anxiety (2) Hypertension Is this a current diagnosis for this admission?: Yes (4) Anxiety disorder Is this a current diagnosis for this admission?: Yes (5) Depression Is this a current diagnosis for this admission?: Yes - Additional Information Resuscitation Status: Full Code Discharge Diet: Cardiac Discharge Activity: Activity As Tolerated Home Medications: Estrogens, Conjugated [Premarin 0.9 mg Tablet] 0.9 mg PO DAILY 09/17/13 Sertraline HCl 100 mg PO DAILY 09/17/13 Budesonide/Formoterol Fumarate [Symbicort HFA 80-4.5 mcg Inhaler 6.9 gm] 2 puff IH BID PRN 11/08/14 Levothyroxine Sodium [Synthroid 0.025 mg Tablet] 100 mcg PO DAILY 11/08/14 Oxycodone HCl 5 mg PO Q4H 11/24/15 Aspirin [Ecotrin] 81 mg PO DAILY 11/25/15 Gabapentin 800 mg PO DAILY 01/31/17 Hydroxychloroquine Sulfate [Plaquenil 200 mg Tablet] 200 mg PO BID 01/31/17 Hydroxyzine HCl 25 mg PO QID 01/31/17 Ondansetron [Ondansetron Odt] 4 mg PO Q8HP PRN 01/31/17 Prednisone 5 mg PO DAILY 01/31/17 Selenium Sulfide 1 applic TOP TID 01/31/17 History of Present Illness History of Present Illness: VERONICA ZARATE is a 51 year old female This is a 51-year-old female with a significant history of the anxiety and the depression with recently have a some more allergy testings and off the certain depression medicationsCame to the emergency department with a complaint of chest pain for more than 24 hours describing when the left-sided and radiating to the left arm.In the emergency department initial EKG and cardiac enzyme was all negative and patient was decided to admit for rule out acute coronary syndromePatient was also giving nitro patch which according to the patient's to relieve the symptoms Patient's otherwise denied chest pain when I saw to the floor denied any shortness of the breath Hospital Course Hospital Course: This is a 51-year-old female with a significant history of the anxiety depressions came to the emergency department with a complaint with chest pain on and off and patient was admitted in the hospital for further evaluation and treatments Cardiology was consulted and patient underwent for the stress test was all negative Patient also have a CT angiogram was done was also negative Patient other blood work is all stable Patients have a recently a just the depression and anxiety medications I think patients follow with the psych and readjust the medications Patient's otherwise doing well patients Ambulatory in hallway without any problem and he denied any chest pain anymore Patient's discharge home with the stable conditions try to contact with the 's but unable to contact the follow the patient in the one-week in office Discussed with the patient about the all the test reports and follow-up plan and coordinate care with the cardiology Physical Exam Vital Signs: Temp Pulse Resp BP Pulse Ox 98.2 F 69 15 130/68 H 96 02/02/17 07:31 02/02/17 07:31 02/02/17 07:31 02/02/17 07:31 02/02/17 07:31 Intake & Output 02/01/17 02/02/17 02/03/17 06:59 06:59 06:59 Intake Total 842 840 Output Total 1300 Balance -458 840 Weight 73.9 kg 75.1 kg General appearance: PRESENT: no acute distress, well-developed, well-nourished Head exam: PRESENT: atraumatic, normocephalic Eye exam: PRESENT: conjunctiva pink, EOMI, PERRLA. ABSENT: scleral icterus Ear exam: PRESENT: normal external ear exam Mouth exam: PRESENT: moist, tongue midline Neck exam: PRESENT: full ROM. ABSENT: carotid bruit, JVD, lymphadenopathy, thyromegaly Respiratory exam: PRESENT: clear to auscultation immanuel Cardiovascular exam: PRESENT: RRR. ABSENT: diastolic murmur, rubs, systolic murmur Pulses: PRESENT: normal dorsalis pedis pul, +2 pedal pulses bilateral Vascular exam: PRESENT: normal capillary refill GI/Abdominal exam: PRESENT: normal bowel sounds, soft. ABSENT: distended, guarding, mass, organolmegaly, rebound, tenderness Rectal exam: PRESENT: deferred Neurological exam: PRESENT: alert, awake, oriented to person, oriented to place , oriented to time, oriented to situation, CN II-XII grossly intact. ABSENT: motor sensory deficit Psychiatric exam: PRESENT: appropriate affect, normal mood. ABSENT: homicidal ideation, suicidal ideation Skin exam: PRESENT: dry, intact, warm. ABSENT: cyanosis, rash Results Laboratory Results: 02/02/17 05:30 02/01/17 02/02/17 08:40 05:30 WBC 7.3 RBC 4.29 Hgb 12.7 Hct 37.8 MCV 88 MCH 29.7 MCHC 33.7 RDW 13.6 Plt Count 288 Triglycerides 104 Cholesterol 179.27 LDL Cholesterol Direct 60 VLDL Cholesterol 21.0 HDL Cholesterol 86 01/31/17 01/31/17 01/31/17 07:12 07:12 14:02 Creatine Kinase 30 27 L CK-MB (CK-2) < 0.22 Troponin I < 0.012 01/31/17 01/31/17 01/31/17 14:02 20:35 20:35 Creatine Kinase 27 L CK-MB (CK-2) < 0.22 < 0.22 Troponin I < 0.012 < 0.012 02/01/17 02/01/17 02/01/17 02:25 02:25 08:40 Creatine Kinase 25 L 24 L CK-MB (CK-2) < 0.22 Troponin I < 0.012 02/01/17 02/01/17 02/01/17 08:40 14:41 14:41 Creatine Kinase 21 L CK-MB (CK-2) < 0.22 < 0.22 Troponin I < 0.012 < 0.012 Impressions: Chest X-Ray 01/31/17 00:58 IMPRESSION: NO SIGNIFICANT RADIOGRAPHIC FINDING IN THE CHEST. Chest/Abdomen CTA 02/01/17 00:00 IMPRESSION: NORMAL CTA OF THE CHEST. NO PULMONARY EMBOLI. 4 MM CALYCEAL CALCULUS IN THE RIGHT KIDNEY, NOT COMPLETELY IMAGED. Plan Time Spent: Greater than 30 Minutes - Discharge home with the stable conditions following a one-week in office and discussed with the patient about the reduced the dose of the hormone medications from 0.9-to 0.3 mgTo reduce the side effect profile
[2017-02-02] MEDS: ENOXAPARIN SODIUM INJ 40 MG/0.4 ML DISP.SYRIN SUBCUT SCH (09:06)
[2017-02-02] MEDS: ASPIRIN 81 MG TABLET, ENT COATED PO SCH (09:06)
[2017-02-02] MEDS: GABAPENTIN 400 MG CAPSULE PO SCH (09:06)
[2017-02-02] MEDS: LEVOTHYROXINE SODIUM 0.1 MG TABLET PO SCH (09:06)
[2017-02-02] MEDS: HYDROXYCHLOROQUINE SULFATE 200 MG TABLET PO SCH (09:07)
[2017-02-02] MEDS: PREDNISONE 5 MG TABLET PO SCH (09:08)
[2017-02-02] MEDS: ESTROGENS,CONJUGATED 0.3 MG TABLET PO SCH (09:08)
[2017-02-02] MEDS: HYDROXYZINE PAMOATE 25 MG CAPSULE PO SCH (09:08)
== END 2017-02-02 09:24 | disposition home or self-care (01) ==
LOC: ER 00:23 → EH 04:15 → UNDOADMOB 04:15 → 4S 06:00 → EH 06:00 → 4S 06:26
PROVIDERS: ADMIT Family Medicine; ATTEND Family Medicine
DX: R07.89 Other chest pain (principal); I10 Essential (primary) hypertension; F41.1 Generalized anxiety disorder; F32.9 Major depressive disorder, single episode, unspecified; J45.909 Unspecified asthma, uncomplicated; E03.9 Hypothyroidism, unspecified; G47.9 Sleep disorder, unspecified; E78.5 Hyperlipidemia, unspecified; G47.8 Other sleep disorders; G47.00 Insomnia, unspecified; R51 Headache; R11.2 Nausea with vomiting, unspecified; R19.7 Diarrhea, unspecified; Z79.818 Long term (current) use of other agents affecting estrogen receptors and estrogen levels; Z79.82 Long term (current) use of aspirin; Z79.52 Long term (current) use of systemic steroids; Z79.51 Long term (current) use of inhaled steroids; Z82.49 Family history of ischemic heart disease and other diseases of the circulatory system; Z90.710 Acquired absence of both cervix and uterus
CPT/HCPCS: 93005 ×2; 99285; 96372; 36415 ×3; 82553 ×2; 82550 ×2; 83690; 85025; 85027; 80053; 81001; 84484 ×2; 85379; 80061; 93306; 93017; 71020; 78452; 71275; 93010; G0378 ×3; A9500; J2785; J3490 ×3; J1650; J2405; J0280; Q9969

== ENCOUNTER → 2017-02-25 | Outpatient (CLI) | payer OTHER ==
--- NOTE | 2017-02-25 09:09 | WOMENS IMAGING REPORT ---
EXAM DESCRIPTION: U/S ABDOMEN TOTAL COMPLETED DATE/TIME: 02/25/2017 8:57 am REASON FOR STUDY: NAUSEA R11.0 NAUSEA R10.11 RIGHT UPPER QUADRANT PAIN COMPARISON: None. TECHNIQUE: Dynamic and static grayscale images acquired of the abdomen and recorded on PACS. Additio nal selected color Doppler and spectral images recorded. LIMITATIONS: None. FINDINGS: PANCREAS: No masses. Visualized pancreatic duct normal caliber. LIVER: No masses. Echotexture normal. LIVER VASCULATURE: Normal directional flow of the main portal vein and hepatic veins. GALLBLADDER: Contracted. No pericholecystic fluid. ULTRASOUND-DETECTED CISSE'S SIGN: Negative. INTRAHEPATIC DUCTS AND COMMON DUCT: CBD and intrahepatic ducts normal caliber. No filling defects. INFERIOR VENA CAVA: Normal flow. AORTA: No aneurysm. RIGHT KIDNEY: Normal size. Cortical thinning. No solid or suspicious masses. No hydronephrosis . 7 mm stone upper pole. LEFT KIDNEY: Normal size. Cortical thinning. No solid or suspicious masses. No hydronephrosis. No calcifications. SPLEEN: Normal size. No solid masses. PERITONEAL AND PLEURAL SPACES: No ascites or effusions. OTHER: No other significant finding. IMPRESSION: Nonobstructing right renal calculus. Medical renal disease. TECHNICAL DOCUMENTATION: JOB ID: [id number] [employer]- All Rights Reserved
== END ==
LOC: WI 08:13
PROVIDERS: ATTEND Internal Medicine Gastroenterology
DX: R11.0 Nausea (principal); R10.11 Right upper quadrant pain
CPT/HCPCS: 76700

== ENCOUNTER → 2017-03-14 | Outpatient (CLI) | payer OTHER ==
--- NOTE | 2017-03-14 15:37 | RADIOLOGY REPORT (SQ) ---
EXAM DESCRIPTION: NM HIDA SCAN WITH CCK COMPLETED DATE/TIME: 03/14/2017 3:03 pm REASON FOR STUDY: DISEASE OF GALLBLADDER, UNSPEC (K82.9), NAUSEA (R11.0), RUQ PAIN (R10.11) K82.9 D ISEASE OF GALLBLADDER, UNSPECIFIED R11.0 NAUSEA R10.11 RIGHT UPPER QUADRANT PAIN COMPARISON: None. RADIONUCLIDE AND DOSE: DOSAGE RADIONUCLIDE: 5 millicuries Tc99m Mebrofenin. DOSAGE CCK: 1.4 micrograms. DOSAGE MORPHINE: Not required. The route of agent administration: Intravenous TECHNIQUE: Serial imaging right upper quadrant up to 60 minutes following injection of radionuclide. CCK injected after gallbladder visualized. LIMITATIONS: None. FINDINGS: LIVER: Normal visualization without areas of photopenia. INTRAHEPATIC BILE DUCTS: Normal size and no delay in visualization. COMMON BILE DUCT: Normal without dilatation. GALLBLADDER: Normal visualization. Calculated ejection fraction of 79%. Normal range is greater th an 35%. PHYSICAL RESPONSE: Patients presenting complaint was not reproduced. OTHER: No other significant finding. IMPRESSION: NORMAL STUDY WITHOUT CYSTIC OR COMMON DUCT OBSTRUCTION. NORMAL GALLBLADDER EJECTION FRA CTION. NO EVIDENCE FOR BILIARY DYSKINESIS. TECHNICAL DOCUMENTATION: JOB ID: [id number] [employer]- All Rights Reserved
== END ==
LOC: RAD 12:34
PROVIDERS: ATTEND Internal Medicine Gastroenterology
DX: K82.9 Disease of gallbladder, unspecified (principal); R11.0 Nausea; R10.11 Right upper quadrant pain
CPT/HCPCS: 78227; A9537; Q9969; J2805

== ENCOUNTER 2017-06-19 05:11 | Emergency (ER) | payer OTHER ==
[2017-06-19] MEDS ORDERED: ONDANSETRON 4 MG TAB.RAPDIS PO ONE (05:51)
--- NOTE | 2017-06-19 05:51 | ER Document Report ---
ED Fall - General Chief Complaint: Fall Stated Complaint: FALL,HAND PAIN Time Seen by Provider: 06/19/17 05:35 Mode of Arrival: Ambulatory Information source: Patient Notes: 51-year-old female was pulling some bushes and fell on her buttocks and hit the back of her head on the ground. She woke up this morning with pain in her left arm she is not sure how she hurt it during this fall. She has some neck pain and mild headache. No loss of consciousness or vomiting. Mild headache and nausea this morning at 04:30, with some dizziness while driving here this morning. Spouse at work but she can stay with her mom today. TRAVEL OUTSIDE OF THE [place] IN LAST 30 DAYS: No - Related data Allergies/Adverse Reactions: No Known Allergies Allergy (Verified 04/18/16 16:24) Past Medical History - Social History Smoking Status: Never Smoker Chew tobacco use (# tins/day): No Frequency of alcohol use: None Drug Abuse: None Family History: None, CAD Patient has suicidal ideation: No Patient has homicidal ideation: No - Past Medical History Cardiac Medical History: Reports: Hx Hypercholesterolemia Denies: Hx Coronary Artery Disease, Hx Heart Attack, Hx Hypertension Pulmonary Medical History: Reports: Hx Asthma Denies: Hx Bronchitis, Hx COPD, Hx Pneumonia, Hx Tuberculosis Neurological Medical History: Denies: Hx Cerebrovascular Accident, Hx Seizures Endocrine Medical History: Reports: Hx Hypothyroidism Renal/ Medical History: Denies: Hx Peritoneal Dialysis Musculoskeltal Medical History: Reports Hx Arthritis Psychiatric Medical History: Reports: Hx Anxiety, Hx Depression Past Surgical History: Reports: Hx Hysterectomy - Immunizations Hx Diphtheria, Pertussis, Tetanus Vaccination: Yes Hx Pneumococcal Vaccination: 07/04/12 Physical Exam - Vital signs Vitals: Pulse Resp BP Pulse Ox 87 16 110/60 94 06/19/17 05:18 06/19/17 05:18 06/19/17 05:18 06/19/17 05:18 Course - Re-evaluation Re-evalutation: 06/19/17 06:40 pt feels better, no dizziness or headache (which was mild), dr engle OK for pt to drive home. 06/19/17 07:01 spouse is coming to get her for head injury instructions and to stay with pt today - Vital Signs Vital signs: Temp Pulse Resp BP Pulse Ox 97.5 F 72 16 111/63 96 06/19/17 06:50 06/19/17 06:50 06/19/17 06:50 06/19/17 06:50 06/19/17 06:50 Procedures - Immobilization Left Wrist Time completed: 07:02 Pre-Proc Neuro Vasc Exam: Normal Immobilizer type: Cock-up Performed by: PCT Post-Proc Neuro Vasc Exam: Normal Alignment checked and good: Yes Discharge - Discharge Clinical Impression: left wrist sprain, Nausea Fall Qualifiers: Encounter type: initial encounter Qualified Code(s): W19.XXXA - Unspecified fall, initial encounter Cervical strain Qualifiers: Encounter type: initial encounter Qualified Code(s): S16.1XXA - Strain of muscle, fascia and tendon at neck level, initial encounter Head injury Qualifiers: Encounter type: initial encounter Qualified Code(s): S09.90XA - Unspecified injury of head, initial encounter Concussion Qualifiers: Encounter type: initial encounter Loss of consciousness presence/duration: without LOC Qualified Code(s): S06.0X0A - Concussion without loss of consciousness, initial encounter Condition: Good Disposition: HOME, SELF-CARE Instructions: Head Injury Precautions ([facility]), Neck Injury (Cervical Strain) ([facility] ), Splint Precautions ([facility]), Wrist Sprain ([facility]), Temporary Splint ([facility]) Additional Instructions: splint for comfort see orthopedics if pain persists stay with your mom today since you had a head injury yesterday return to er any concerns see neurologist if headache, dizziness recurs or persists Referrals: LEON SETHI MD [ACTIVE STAFF] - Follow up as needed JUAN CARLOS CANO MD [ACTIVE STAFF] - Follow up as needed
--- NOTE | 2017-06-19 06:10 | RADIOLOGY REPORT (SQ) ---
EXAM DESCRIPTION: FOREARM LEFT CLINICAL HISTORY: swollen tender, injuryn left wrist to mid forearm COMPARISON: None. FINDINGS: 2 views of the left forearm. No acute fracture or dislocation. Normal osseous mineralization. No joint effusion identified. IMPRESSION: No acute fracture or dislocation.
--- NOTE | 2017-06-19 06:22 | RADIOLOGY REPORT (SQ) ---
EXAM DESCRIPTION: CT HEAD WITHOUT CLINICAL HISTORY: headache COMPARISON: None available TECHNIQUE: Axial CT of the head obtained from the skull apex to the skull base without contrast. FINDINGS: No acute intracranial hemorrhage identified. No mass, mass effect, shift of the midline, abnormal extra-axial fluid collection or CT evidence of acute ischemic change identified. The ventricular system is unremarkable. No acute abnormalities of the supratentorial white matter, basal ganglia, cerebellum, or brainstem. The visualized paranasal sinuses and the mastoids are clear. No skull fracture identified. Visualized orbits and globes are unremarkable. DLP:1033.75 mGy-cm IMPRESSION: 1. No acute intracranial abnormality by CT criteria. This exam was performed according to our departmental dose-optimization program, which includes automated exposure control, adjustment of the mA and/or kV according to patient size and/or use of iterative reconstruction technique.
--- NOTE | 2017-06-19 06:25 | RADIOLOGY REPORT (SQ) ---
EXAM DESCRIPTION: CT CERVICAL SPINE WITHOUT CLINICAL HISTORY: fall head injury, neck pain COMPARISON: None available TECHNIQUE: Axial CT of the cervical spine obtained without contrast. FINDINGS: Alignment of the cervical spine is maintained without evidence of subluxation. The atlantoaxial, atlantodental, and occipitoatlantal intervals are preserved. No fracture identified. Vertebral body height preserved. Prevertebral soft tissues are unremarkable. Intervertebral disc height preserved. Degenerative change of the atlantodental articulation. Visualized skull base is intact. No fracture of the visualized facial bones. Visualized mastoid air cells and paranasal sinuses are well aerated. No cervical lymphadenopathy. No pneumothorax in the visualized lung apices. DLP: 370.86 mGy-cm IMPRESSION: 1. No acute fracture or subluxation of the cervical spine. This exam was performed according to our departmental dose-optimization program, which includes automated exposure control, adjustment of the mA and/or kV according to patient size and/or use of iterative reconstruction technique.
[2017-06-19] MEDS ORDERED: ONDANSETRON ODT 4 MG TAB (6 TAB/DSPK) PO PRN (06:44)
[2017-06-19 06:54] VITALS: BP 111/63
== END 2017-06-19 07:04 | disposition home or self-care (01) ==
LOC: ER 05:11
DX: S63.502A Unspecified sprain of left wrist, initial encounter (principal); S16.1XXA Strain of muscle, fascia and tendon at neck level, initial encounter; S06.0X0A Concussion without loss of consciousness, initial encounter; R11.0 Nausea; M79.642 Pain in left hand; M54.2 Cervicalgia; R51 Headache; R42 Dizziness and giddiness; M79.602 Pain in left arm; W19.XXXA Unspecified fall, initial encounter
CPT/HCPCS: 99284; 73090; 70450; 72125; L3908; S0119

== ENCOUNTER → 2018-04-04 | Outpatient (CLI) | payer MEDICARE, OTHER ==
--- NOTE | 2018-04-04 11:21 | WOMENS IMAGING REPORT ---
EXAM DESCRIPTION: BONE DENSITY HIP/SPINE COMPLETED DATE/TIME: 04/04/2018 10:22 am REASON FOR STUDY: OSTEOPOROSIS Z12.31 ENCNTR SCREEN MAMMOGRAM FOR MALIGNANT NEOPLASM OF KRIS M81.8 OTHER OSTEOPOROSIS WITHOUT CURRENT PATHOLOGICAL FRACTU COMPARISON: 2017 TECHNIQUE: Dual-Energy X-ray Absorptiometry (DEXA) of the AP Spine and Hip. LIMITATIONS: None. FINDINGS: LUMBAR SPINE: The bone mineral density (BMD) measured from L1-L4 in the AP projection correlates with a T-score of -0.3, which is normal as defined by the World Health Organization. This is stable compared to 2017 HIP: The bone mineral density (BMD) measured in the left femoral neck at the hip correlates with a T-score of -1.6, which is osteopenic as defined by the World Health Organization. This is stable compared t o 2017. IMPRESSION: 1. LUMBAR SPINE: Normal 2. HIP: Osteopenic COMMENT: The World Health Organization defines low BMD as follows: T-score: Normal: Greater than -1.0 Osteopenia: Between -1.0 and -2.5 Osteoporosis: Less than -2.5 without fractures Established osteoporosis: Less than -2.5 with fractures In general, you may wish to consider: Diagnosis Treatment Follow-up DEXA Normal BMD Prevention 2-3 years Osteopenia Prevention/Therapy 1-2 years Osteoporosis Therapy Yearly TECHNICAL DOCUMENTATION: JOB ID: [id number]- All Rights Reserved Reading location - IP/workstation name: [email or web address]
--- NOTE | 2018-04-06 10:44 | WOMENS IMAGING REPORT ---
EXAM DESCRIPTION: 3D SCREENING MAMMO BILAT COMPLETED DATE/TIME: 04/04/2018 10:22 am REASON FOR STUDY: SCREENING MAMMO Z12.31 ENCNTR SCREEN MAMMOGRAM FOR MALIGNANT NEOPLASM OF KRIS M81. 8 OTHER OSTEOPOROSIS WITHOUT CURRENT PATHOLOGICAL FRACTU COMPARISON: 2016, 2015 TECHNIQUE: Standard craniocaudal and mediolateral oblique views of each breast recorded using digita l acquisition and breast tomosynthesis. LIMITATIONS: None. FINDINGS: No masses, calcifications or architectural distortion. No areas of suspicion. Read with the assistance of CAD. .[facility] - R2 C[employer]ova Version 1.3 .[facility] - R2 Cenova Version 1.3 .[facility] - R2 Cenova Version 2.4 .[facility] [place]2 Cenova Version 2.4 .[facility] - R2 [employer] Version 9.2 IMPRESSION: NORMAL MAMMOGRAM. BIRADS 1. BREAST DENSITY: b. There are scattered areas of fibroglandular density. BIRAD: 1 NEGATIVE RECOMMENDATION: ROUTINE SCREENING Please continue yearly bilateral screening tomosynthesis in April 2019 COMMENT: The patient has been notified of the results by letter per SA requirements. Additional no tification policies are in place for contacting patient with suspicious or incomplete findings. Quality ID #[id number]: The [employer] recommends an annual screening mammogram for women aged 40 years or over. This facility utilizes a reminder system to ensure that all patients receive reminder letters, and/or direct phone calls for appointments. This includes reminders for routine scr eening mammograms, diagnostic mammograms, or other Breast Imaging Interventions when appropriate. Th is patient will be placed in the appropriate reminder system. The [employer] (ACR) has developed recommendations for screening MRI of the breast s in certain patient populations, to be used in conjunction with mammography. Breast MRI surveillanc e may be appropriate for women with more than 20% lifetime risk of developing breast cancer as deter mined by genetic testing, significant family history of the disease, or history of mantle radiation f or Hodgkins Disease. ACR Practice Guidelines 2008. DBT Technology DBT is a type of tomographic mammography. With conventional mammography, overlapping breast tissue ma y make lesions difficult to detect, even with good compression. DBT uses an x-ray tube that rotates a round the breast, taking images at different angles. These images are then combined to create thin sl ices of the breast that the radiologist can view as a 3D reconstruction. The [employer] unit can perform full-field digital mammograms (2D imaging); or DBT (3D imaging); or both, in a combination mode that quickly performs both the mammogram and the tomosynthesis scan while the breast is still compressed. PQRS 6045F: Fluoroscopic imaging is not utilized for breast tomosynthesis. TECHNICAL DOCUMENTATION: FINDING NUMBER: (1) ASSESSMENT: (1) JOB ID: [id number] [employer]- All Rights Reserved Reading location - IP/workstation name: [facility]
== END ==
LOC: WI 09:30
PROVIDERS: ATTEND Physician Assistant
DX: Z12.31 Encounter for screening mammogram for malignant neoplasm of breast (principal); M81.8 Other osteoporosis without current pathological fracture
CPT/HCPCS: 77063; 77067; 77080

== ENCOUNTER → 2018-05-31 | Outpatient (CLI) | payer MEDICARE, OTHER ==
--- NOTE | 2018-05-31 11:25 | RADIOLOGY REPORT (SQ) ---
EXAM DESCRIPTION: ANKLE RIGHT COMPLETE COMPLETED DATE/TIME: 05/31/2018 9:48 am REASON FOR STUDY: PAIN IN RIGHT ANKLE AND JOINTS OF R FOOTS M25.571 PAIN IN RIGHT ANKLE AND JOINTS OF RIGHT FOOT M25.562 PAIN IN LEFT KNEE fell yesterday, twisted right ankle COMPARISON: None. NUMBER OF VIEWS: Three views. TECHNIQUE: AP, lateral, and oblique radiographic images acquired of the right ankle. LIMITATIONS: Lateral film is rotated FINDINGS: MINERALIZATION: Normal. BONES: Question hairline nondisplaced fracture distal fibula marked with arrows on the mortise view JOINTS: No malalignment at the ankle mortise. SOFT TISSUES: Diffuse lateral malleolar soft tissue swelling. No acute displaced fracture OTHER: No other significant finding. IMPRESSION: Diffuse right lateral malleolar soft tissue swelling. No malalignment at the ankle mort ise Question hairline nondisplaced fracture distal fibula marked with arrows on the mortise view TECHNICAL DOCUMENTATION: JOB ID: [id number] [employer]- All Rights Reserved Reading location - IP/workstation name: [email or web address]
--- NOTE | 2018-05-31 11:32 | RADIOLOGY REPORT (SQ) ---
EXAM DESCRIPTION: KNEE LEFT 4 VIEW COMPLETED DATE/TIME: 05/31/2018 9:48 am REASON FOR STUDY: PAIN IN LEFT KNEE M25.571 PAIN IN RIGHT ANKLE AND JOINTS OF RIGHT FOOT M25.562 P AIN IN LEFT KNEE fell on concrete, pretibial and anterior left knee pain COMPARISON: None. NUMBER OF VIEWS: Four views. TECHNIQUE: AP, lateral, and both oblique radiographic images acquired of the left knee. LIMITATIONS: None. FINDINGS: MINERALIZATION: Normal. BONES: No acute fracture or dislocation. No worrisome bone lesions. JOINT: No effusion. SOFT TISSUES: Mild pretibial soft tissue swelling. No radio-opaque foreign body. OTHER: No other significant finding. IMPRESSION: Mild pretibial soft tissue swelling. No radiopaque foreign body. No underlying fractur e or joint effusion TECHNICAL DOCUMENTATION: JOB ID: [id number] [employer]- All Rights Reserved Reading location - IP/workstation name: [email or web address]
== END ==
LOC: RAD 09:22
PROVIDERS: ATTEND Physician Assistant Medical
DX: M25.571 Pain in right ankle and joints of right foot (principal); M25.562 Pain in left knee; M79.89 Other specified soft tissue disorders; W19.XXXA Unspecified fall, initial encounter

== ENCOUNTER 2018-11-18 20:49 | Emergency (ER) | payer MEDICARE, OTHER ==
[2018-11-18 21:05] VITALS: BP 117/67
[2018-11-18 21:20] LABS: APPEARANCE,URINE CLEAR; BILIRUBIN,URINE NEGATIVE (NEGATIVE); COLOR,URINE STRAW; GLUCOSE, URINE NEGATIVE (NEGATIVE); KETONES,URINE NEGATIVE (NEGATIVE); LEUKOCYTE ESTERASE,URINE LARGE (NEGATIVE); NITRITE,URINE NEGATIVE (NEGATIVE); PROTEIN,URINE NEGATIVE (NEGATIVE); URINE SPECIFIC GRAVITY 1.002; UROBILINOGEN,URINE NEGATIVE mg/dL (<2.0)
[2018-11-18] MEDS ORDERED: CIPROFLOXACIN HCL 500 MG TABLET PO ONE (21:35)
--- NOTE | 2018-11-18 21:39 | ER Document Report ---
ED General - General Chief Complaint: Pain With Urination Stated Complaint: URINARY PROBLEM Time Seen by Provider: 11/18/18 21:23 Primary Care Provider: TERRY LOMELI PA-C [Primary Care Provider] - Follow up as needed Mode of Arrival: Ambulatory Information source: Patient TRAVEL OUTSIDE OF THE [place] IN LAST 30 DAYS: No - HPI Patient complains to provider of: Severe dysuria Onset: This morning Onset/Duration: Sudden Quality of pain: Burning Severity: Moderate Pain Level: 3 Associated symptoms: denies: Chills, Fever, Nausea, Vomiting Exacerbated by: Denies Relieved by: Denies Similar symptoms previously: Yes Recently seen / treated by doctor: No Notes: 53-year-old female coming in today with suprapubic burning with urination. No fevers or chills. No nausea vomiting. No flank pain. Feels just like a typical UTI for her. History of multiple in the past - Related Data Allergies/Adverse Reactions: No Known Allergies Allergy (Verified 04/18/16 16:24) Past Medical History - General Information source: Patient - Social History Smoking Status: Never Smoker Family History: None, Reviewed & Not Pertinent, CAD - Past Medical History Cardiac Medical History: Reports: Hx Hypercholesterolemia Denies: Hx Coronary Artery Disease, Hx Heart Attack, Hx Hypertension Pulmonary Medical History: Reports: Hx Asthma Denies: Hx Bronchitis, Hx COPD, Hx Pneumonia, Hx Tuberculosis Neurological Medical History: Denies: Hx Cerebrovascular Accident, Hx Seizures Endocrine Medical History: Reports: Hx Hypothyroidism Renal/ Medical History: Denies: Hx Peritoneal Dialysis Musculoskeletal Medical History: Reports Hx Arthritis Psychiatric Medical History: Reports: Hx Anxiety, Hx Depression Past Surgical History: Reports: Hx Hysterectomy - Immunizations Hx Diphtheria, Pertussis, Tetanus Vaccination: Yes Hx Pneumococcal Vaccination: 07/04/12 Review of Systems - Review of Systems Notes: Constitutional: No fevers. No chills. EENT: No eye redness. No eye pain. No ear pain. No sore throat. Cardiovascular: No chest pain. No palpitations. Respiratory: No cough. No shortness of breath. No respiratory distress. Gastrointestinal: Positive dysuria positive suprapubic pain Genitourinary: Atraumatic. No lesions. No pain. No discharge. Musculoskeletal: Atraumatic. No swelling. No deformities. Skin: No rash or lesions. Lymphatic: No swollen lymph nodes. Neurologic: No headache. No syncope. Psychiatric: No suicidal or homicidal ideation. Physical Exam - Vital signs Vitals: Temp Pulse Resp BP Pulse Ox 97.4 F 82 16 117/67 97 11/18/18 21:03 11/18/18 21:03 11/18/18 21:03 11/18/18 21:03 11/18/18 21:03 - Notes Notes: General: Well-developed, well-nourished. In no acute distress. Non-toxic appearing. Cardiac: Well-perfused. Regular rate and rhythm. No murmurs, rubs, or gallops. Pulmonary: No respiratory distress. No cyanosis. Bilateral lung fiels are clear to auscultation. Abdominal: Positive suprapubic tenderness. Otherwise normal abdominal exam. No CVA tenderness HEENT: Head is atraumatic. Conjunctivae not reddened. No tearing. PERRL. EOMI. Orbits atraumatic. No periorbital swelling or erythema. Oropharynx is without erythema, swelling, or exudates. Neck: Supple. No adenopathy. No meningismus. Dermatologic: Warm with good turgor. No rash. Atraumatic. Chest: Atraumatic. No chest wall tenderness to palpation. Musculoskeletal: Moves all extremities well. No range of motion deficits. no muscular or joint tenderness. No paraspinal muscle tenderness. no midline spinal tenderness or step-off. Genitourinary: Examination deferred Neurologic: No gross neurologic deficits. Psychiatric: Normal mood. Course - Vital Signs Vital signs: Temp Pulse Resp BP Pulse Ox 97.4 F 82 16 117/67 97 11/18/18 21:03 11/18/18 21:03 11/18/18 21:03 11/18/18 21:03 11/18/18 21:03 - Laboratory Laboratory results interpreted by me: 11/18/18 20:57 Urine Blood SMALL H Ur Leukocyte Esterase LARGE H Discharge - Discharge Clinical Impression: Cystitis Condition: Good Disposition: HOME, SELF-CARE Instructions: Urinary Tract Infection ([facility]) Prescriptions: Ciprofloxacin HCl [Cipro] 500 mg PO BID #10 tablet Referrals: TERRY LOMELI PA-C [Primary Care Provider] - 11/20/18
== END 2018-11-18 21:50 | disposition home or self-care (01) ==
LOC: ER 20:49
DX: N30.90 Cystitis, unspecified without hematuria (principal); J45.909 Unspecified asthma, uncomplicated
CPT/HCPCS: 99283; 81001; A9270

== ENCOUNTER 2019-02-16 13:15 | Emergency (ER) | payer MEDICARE, OTHER ==
[2019-02-16 13:21] VITALS: BP 139/72
[2019-02-16] MEDS ORDERED: ONDANSETRON 4 MG TAB.RAPDIS PO ONE (14:08)
--- NOTE | 2019-02-16 14:09 | ER Document Report ---
ED Medical Screen (RME) - General Chief Complaint: Abdominal Pain Stated Complaint: ABDOMINAL PAIN Time Seen by Provider: 02/16/19 14:07 Primary Care Provider: TERRY LOMELI PA-C [Primary Care Provider] - Follow up as needed Information source: Patient Notes: Patient presents complaining of upper abdominal pain that is been off and on for the past month. Patient states pain is worse after eating. Patient reports nausea no vomiting or diarrhea. No fever, no urinary symptoms. I have greeted and performed a rapid initial assessment of this patient. A comprehensive ED assessment and evaluation of the patient, analysis of test results and completion of the medical decision making process will be conducted by additional ED providers. TRAVEL OUTSIDE OF THE [place] IN LAST 30 DAYS: No - Related Data Allergies/Adverse Reactions: No Known Allergies Allergy (Verified 02/16/19 13:18) Past Medical History - Past Medical History Cardiac Medical History: Reports: Hx Hypercholesterolemia Denies: Hx Coronary Artery Disease, Hx Heart Attack, Hx Hypertension Pulmonary Medical History: Reports: Hx Asthma Denies: Hx Bronchitis, Hx COPD, Hx Pneumonia, Hx Tuberculosis Neurological Medical History: Denies: Hx Cerebrovascular Accident, Hx Seizures Endocrine Medical History: Reports: Hx Hypothyroidism Renal/ Medical History: Denies: Hx Peritoneal Dialysis Musculoskeltal Medical History: Reports Hx Arthritis Psychiatric Medical History: Reports: Hx Anxiety, Hx Depression Past Surgical History: Reports: Hx Hysterectomy - Immunizations Hx Diphtheria, Pertussis, Tetanus Vaccination: Yes Physical Exam - Vital signs Vitals: Temp Pulse Resp BP Pulse Ox 97.6 F 92 20 139/72 H 98 02/16/19 13:20 02/16/19 13:20 02/16/19 13:20 02/16/19 13:20 02/16/19 13:20 - General Notes: Right upper quadrant, epigastric tenderness Course - Vital Signs Vital signs: Temp Pulse Resp BP Pulse Ox 97.6 F 92 20 139/72 H 98 02/16/19 13:20 02/16/19 13:20 02/16/19 13:20 02/16/19 13:20 02/16/19 13:20 Doctor's Discharge - Discharge Referrals: TERRY LOMELI PA-C [Primary Care Provider] - Follow up as needed
--- NOTE | 2019-02-16 14:39 | RADIOLOGY REPORT (SQ) ---
EXAM DESCRIPTION: CHEST 2 VIEWS COMPLETED DATE/TIME: 02/16/2019 2:30 pm REASON FOR STUDY: upper abd pain COMPARISON: 01/31/2017. EXAM PARAMETERS: NUMBER OF VIEWS: two views TECHNIQUE: Digital Frontal and Lateral radiographic views of the chest acquired. RADIATION DOSE: NA LIMITATIONS: none FINDINGS: LUNGS AND PLEURA: No opacities, masses or pneumothorax. No pleural effusion. MEDIASTINUM AND HILAR STRUCTURES: No masses or contour abnormalities. HEART AND VASCULAR STRUCTURES: Heart normal size. No evidence for failure. BONES: No acute findings. HARDWARE: None in the chest. OTHER: No other significant finding. IMPRESSION: NO ACUTE RADIOGRAPHIC FINDING IN THE CHEST. TECHNICAL DOCUMENTATION: JOB ID: [id number] -[employer]- All Rights Reserved Reading location - IP/workstation name: [email or web address]
--- NOTE | 2019-02-16 15:36 | RADIOLOGY REPORT (SQ) ---
EXAM DESCRIPTION: U/S ABDOMEN LIMITED W/O DOP COMPLETED DATE/TIME: 02/16/2019 3:15 pm REASON FOR STUDY: upper abd pain COMPARISON: 02/25/2017 TECHNIQUE: Dynamic and static grayscale images acquired of the abdomen and recorded on PACS. Additio nal selected color Doppler and spectral images recorded. LIMITATIONS: None. FINDINGS: PANCREAS: No masses. Visualized pancreatic duct normal caliber. LIVER: No masses. Echotexture normal. LIVER VASCULATURE: Normal directional flow of the main portal vein and hepatic veins. GALLBLADDER: No stones. Normal wall thickness. No pericholecystic fluid. ULTRASOUND-DETECTED CISSE'S SIGN: Negative. INTRAHEPATIC DUCTS AND COMMON DUCT: CBD and intrahepatic ducts normal caliber. No filling defects. INFERIOR VENA CAVA: Normal flow. AORTA: No aneurysm identified. RIGHT KIDNEY: Normal size. Normal echogenicity. No solid or suspicious masses. No hydronephros is. No calcifications. PERITONEAL AND RIGHT PLEURAL SPACE: No ascites or effusions. OTHER: No other significant findings. IMPRESSION: NO ACUTE FINDINGS. TECHNICAL DOCUMENTATION: JOB ID: [id number]-72 2010 [employer]- All Rights Reserved Reading location - IP/workstation name: [email or web address]
[2019-02-16 16:15] LABS: APPEARANCE,URINE CLEAR; BILIRUBIN,URINE NEGATIVE (NEGATIVE); COLOR,URINE STRAW; GLUCOSE, URINE NEGATIVE (NEGATIVE); KETONES,URINE NEGATIVE (NEGATIVE); LEUKOCYTE ESTERASE,URINE NEGATIVE (NEGATIVE); NITRITE,URINE NEGATIVE (NEGATIVE); PROTEIN,URINE NEGATIVE (NEGATIVE); URINE SPECIFIC GRAVITY 1.003; UROBILINOGEN,URINE NEGATIVE mg/dL (<2.0)
[2019-02-16 17:05] LABS: ABSOLUTE BASOPHILS # (AUTO) 0.1 10^3/uL (0.0-0.2); ABSOLUTE EOSINOPHILS # (AUTO) 0.1 10^3/uL (0.0-0.6); ABSOLUTE LYMPHOCYTES (AUTO) 1.7 10^3/uL (0.5-4.7); ABSOLUTE MONOCYTES (AUTO) 0.6 10^3/uL (0.1-1.4); BASOPHILS % (AUTO) 0.9 % (0-2); LYMPHOCYTES % (AUTO) 25.8 % (13-45); MEAN CORPUSCULAR HEMOGLOBIN 28.4 pg (27.0-33.4); MEAN CORPUSCULAR HGB CONC 32.6 g/dL (32.0-36.0); MEAN CORPUSCULAR VOLUME 87 fl (80-97); MONOCYTES % (AUTO) 8.7 % (3-13); PLATELET COUNT 267 10^3/uL (150-450); RED BLOOD COUNT 4.59 10^6/uL (3.72-5.28); RED CELL DISTRIBUTION WIDTH 14.2 % (11.5-14.0); SEGMENTED NEUTROPHILS % (AUTO) 62.6 % (42-78); TOTAL CELLS COUNTED % (AUTO) 100 %; WHITE BLOOD COUNT 6.5 10^3/uL (4.0-10.5)
[2019-02-16 17:25] LABS: ALBUMIN 4.6 g/dL (3.5-5.0); ALKALINE PHOSPHATASE 62 U/L (38-126); ANION GAP 9 (5-19); ASPARTATE AMINO TRANSFERASE 39 U/L (14-36); BILIRUBIN,DIRECT 0.3 mg/dL (0.0-0.4); BILIRUBIN,TOTAL 0.4 mg/dL (0.2-1.3); BLOOD UREA NITROGEN 16 mg/dL (7-20); CALCIUM 10.2 mg/dL (8.4-10.2); CARBON DIOXIDE 26 mmol/L (22-30); CHLORIDE 105 mmol/L (98-107); GLUCOSE 90 mg/dL (75-110); TOTAL PROTEIN 7.1 g/dL (6.3-8.2)
--- NOTE | 2019-02-16 19:22 | ER Document Report ---
ED General - General Chief Complaint: Abdominal Pain Stated Complaint: ABDOMINAL PAIN Time Seen by Provider: 02/16/19 14:07 Primary Care Provider: TERRY LOMELI PA-C [NURSE PRACTITIONER] - Follow up as needed TRAVEL OUTSIDE OF THE [place] IN LAST 30 DAYS: No - HPI Notes: 53-year-old female who presents with upper abdominal pain. Patient seen by the pit practitioner prior to my evaluation was ordered studies which are available the time of initial evaluation. Patient describes a month of intermittent epigastric and right upper quadrant abdominal pain. She indicates to me that this came on after she had fallen on the ground and injured her epigastric area with her own elbow. Comes and goes waxes and wanes, no particular relation to eating. Achy sharp at times. Nonradiating. No current vomiting. No bloody stool, no bloody vomitus. No difficulty breathing. Moderate intensity, gradual onset, nonradiating. No other modifying factors, no other associated symptoms, no other provocative or palliative factors. Patient is not anticoagulated - Related Data Allergies/Adverse Reactions: No Known Allergies Allergy (Verified 02/16/19 13:18) Past Medical History - General Information source: Patient - Social History Smoking Status: Never Smoker Chew tobacco use (# tins/day): No Drug Abuse: None Family History: None, Reviewed & Not Pertinent, CAD Patient has suicidal ideation: No Patient has homicidal ideation: No - Past Medical History Cardiac Medical History: Reports: Hx Hypercholesterolemia Denies: Hx Coronary Artery Disease, Hx Heart Attack, Hx Hypertension Pulmonary Medical History: Reports: Hx Asthma Denies: Hx Bronchitis, Hx COPD, Hx Pneumonia, Hx Tuberculosis Neurological Medical History: Denies: Hx Cerebrovascular Accident, Hx Seizures Endocrine Medical History: Reports: Hx Hypothyroidism Renal/ Medical History: Denies: Hx Peritoneal Dialysis Musculoskeletal Medical History: Reports Hx Arthritis Psychiatric Medical History: Reports: Hx Anxiety, Hx Depression Past Surgical History: Reports: Hx Hysterectomy - Immunizations Hx Diphtheria, Pertussis, Tetanus Vaccination: Yes Hx Pneumococcal Vaccination: 07/04/12 Review of Systems - Review of Systems Notes: Review of systems as in the history of present illness, otherwise negative x 10 systems. Physical Exam - Vital signs Vitals: Temp Pulse Resp BP Pulse Ox 97.6 F 92 20 139/72 H 98 02/16/19 13:20 02/16/19 13:20 02/16/19 13:20 02/16/19 13:20 02/16/19 13:20 - Notes Notes: General: Well developed . HEENT: Normocephalic, atraumatic. Pupils equal round reactive to light. No JVD. Chest: No trauma. Respiratory: Good air exchange, normal excursion. Cardiac: Regular rhythm. No murmurs or gallops. Abdomen: Soft, benign. No bruising. Minimal right upper quadrant tenderness. Back: No asymmetry or gross abnormality. Motor: Grossly normal power and tone. Neurologic: Alert, nonfocal. Cranial nerves II-12 are intact. Sensation intact. Vascular: Well perfused. Normal peripheral pulses. Skin: No petechiae or purpura. Course - Re-evaluation Re-evalutation: 02/16/19 19:17 This is a well-appearing female who is a month out from minor traumatic sequelae. Prior to my evaluation she underwent laboratory evaluation which showed unremarkable CBC chemistries LFTs and lipase. Radiologic imaging included x-ray and ultrasound which are unremarkable. See no indication for further work-up or any additional imaging. Patient is discharged home to follow-up close with a primary care physician, return if worsening. - Vital Signs Vital signs: Temp Pulse Resp BP Pulse Ox 97.6 F 92 20 139/72 H 98 02/16/19 13:20 02/16/19 13:20 02/16/19 13:20 02/16/19 13:20 02/16/19 13:20 - Laboratory Result Diagrams: 02/16/19 16:57 02/16/19 16:57 Laboratory results interpreted by me: 02/16/19 02/16/19 16:57 16:57 RDW 14.2 H AST 39 H Discharge - Discharge Clinical Impression: Abdominal pain Qualifiers: Abdominal location: unspecified location Qualified Code(s): R10.9 - Unspecified abdominal pain Condition: Good Disposition: HOME, SELF-CARE Instructions: Abdominal Pain ([facility]) Referrals: TERRY LOMELI PA-C [NURSE PRACTITIONER] - Follow up in 1 week
--- NOTE | 2019-02-17 10:12 | EKG REPORT ---
SEVERITY:- NORMAL ECG - SINUS RHYTHM : Confirmed by: Jerman Aj 17-Feb-2019 10:10:36
== END 2019-02-16 20:31 | disposition home or self-care (01) ==
LOC: ER 13:15
DX: R10.10 Upper abdominal pain, unspecified (principal); E78.00 Pure hypercholesterolemia, unspecified; E03.9 Hypothyroidism, unspecified; Z90.710 Acquired absence of both cervix and uterus
CPT/HCPCS: 93005; 99284; 36415; 83690; 85025; 80053; 81001; 84484; 71046; 76705; 93010; A9270; S0119

== ENCOUNTER 2019-04-26 15:18 | Emergency (ER) | payer MEDICARE ==
--- NOTE | 2019-04-26 16:11 | ER Document Report ---
ED Medical Screen (RME) - General Chief Complaint: Dizziness Stated Complaint: DIZZINESS Time Seen by Provider: 04/26/19 16:03 Primary Care Provider: TOBI GOLDEN PA-C [Primary Care Provider] - Follow up as needed Notes: 53-year-old female presented presented to ED for dizziness and frequent falling. She states she has been severely dizzy today. She does have multiple medical conditions that make her dizzy. She states she has been to her primary doctor and he knows she is dizzy. She states she is just more dizzy today than normal. She is alert and oriented answering all questions appropriately. I have greeted and performed a rapid initial assessment of this patient. A comprehensive ED assessment and evaluation of the patient, analysis of test results and completion of medical decision making process will be conducted by an additional ED providers. TRAVEL OUTSIDE OF THE [place] IN LAST 30 DAYS: No - Related Data Allergies/Adverse Reactions: No Known Allergies Allergy (Verified 02/16/19 13:18) Past Medical History - Past Medical History Cardiac Medical History: Reports: Hx Hypercholesterolemia Denies: Hx Coronary Artery Disease, Hx Heart Attack, Hx Hypertension Pulmonary Medical History: Reports: Hx Asthma Denies: Hx Bronchitis, Hx COPD, Hx Pneumonia, Hx Tuberculosis Neurological Medical History: Denies: Hx Cerebrovascular Accident, Hx Seizures Endocrine Medical History: Reports: Hx Hypothyroidism Renal/ Medical History: Denies: Hx Peritoneal Dialysis Musculoskeltal Medical History: Reports Hx Arthritis Psychiatric Medical History: Reports: Hx Anxiety, Hx Depression Past Surgical History: Reports: Hx Hysterectomy - Immunizations Hx Diphtheria, Pertussis, Tetanus Vaccination: Yes Physical Exam - Vital signs Vitals: Temp Pulse Resp BP Pulse Ox 97.8 F 97 18 127/78 H 96 04/26/19 15:58 04/26/19 15:58 04/26/19 15:58 04/26/19 15:58 04/26/19 15:58 Course - Vital Signs Vital signs: Temp Pulse Resp BP Pulse Ox 97.8 F 97 18 127/78 H 96 04/26/19 15:58 04/26/19 15:58 04/26/19 15:58 04/26/19 15:58 04/26/19 15:58 Doctor's Discharge - Discharge Referrals: TOBI GOLDEN PA-C [Primary Care Provider] - Follow up as needed
[2019-04-26] MEDS ORDERED: NORMAL SALINE 500 ML IV ONE (16:51)
[2019-04-26 17:08] LABS: ABSOLUTE EOSINOPHILS # (AUTO) 0.1 10^3/uL (0.0-0.6); ABSOLUTE LYMPHOCYTES (AUTO) 2.1 10^3/uL (0.5-4.7); ABSOLUTE MONOCYTES (AUTO) 0.5 10^3/uL (0.1-1.4); ABSOLUTE NEUT (AUTO) 5.4 10^3/uL (1.7-8.2); BASOPHILS % (AUTO) 0.4 % (0-2); EOSINOPHILS % (AUTO) 0.9 % (0-6); HEMATOCRIT 43.9 % (36.0-47.0); HEMOGLOBIN 14.4 g/dL (12.0-15.5); LYMPHOCYTES % (AUTO) 25.7 % (13-45); MEAN CORPUSCULAR HEMOGLOBIN 28.9 pg (27.0-33.4); MEAN CORPUSCULAR HGB CONC 32.7 g/dL (32.0-36.0); MEAN CORPUSCULAR VOLUME 88 fl (80-97); MONOCYTES % (AUTO) 6.6 % (3-13); PLATELET COUNT 312 10^3/uL (150-450); RED BLOOD COUNT 4.98 10^6/uL (3.72-5.28); RED CELL DISTRIBUTION WIDTH 15.1 % (11.5-14.0); SEGMENTED NEUTROPHILS % (AUTO) 66.4 % (42-78); TOTAL CELLS COUNTED % (AUTO) 100 %; WHITE BLOOD COUNT 8.2 10^3/uL (4.0-10.5)
[2019-04-26 17:18] LABS: INTERNATIONAL RATION (INR) 0.89
[2019-04-26 17:19] LABS: PARTIAL THROMBOPLASTIN TIME 29.8 SEC (23.5-35.8)
[2019-04-26 17:30] LABS: ALBUMIN 5.1 g/dL (3.5-5.0); ALKALINE PHOSPHATASE 74 U/L (38-126); ANION GAP 10 (5-19); ASPARTATE AMINO TRANSFERASE 33 U/L (14-36); BILIRUBIN,DIRECT 0.1 mg/dL (0.0-0.4); BILIRUBIN,TOTAL 0.4 mg/dL (0.2-1.3); BLOOD UREA NITROGEN 19 mg/dL (7-20); CALCIUM 10.4 mg/dL (8.4-10.2); CARBON DIOXIDE 28 mmol/L (22-30); CHLORIDE 101 mmol/L (98-107); CREATINE KINASE 61 U/L (30-135); GLUCOSE 82 mg/dL (75-110); POTASSIUM 4.3 mmol/L (3.6-5.0); TOTAL PROTEIN 8.3 g/dL (6.3-8.2)
[2019-04-26 17:43] LABS: TROPONIN I < 0.012 ng/mL
--- NOTE | 2019-04-26 20:15 | EKG REPORT ---
SEVERITY:- NORMAL ECG - SINUS RHYTHM : Confirmed by: Kiara Olivas MD 26-Apr-2019 20:15:14
[2019-04-26 21:19] LABS: APPEARANCE,URINE CLEAR; BILIRUBIN,URINE NEGATIVE (NEGATIVE); COLOR,URINE YELLOW; GLUCOSE, URINE NEGATIVE (NEGATIVE); KETONES,URINE NEGATIVE (NEGATIVE); LEUKOCYTE ESTERASE,URINE NEGATIVE (NEGATIVE); NITRITE,URINE NEGATIVE (NEGATIVE); PROTEIN,URINE NEGATIVE (NEGATIVE); UROBILINOGEN,URINE NEGATIVE mg/dL (<2.0)
[2019-04-26] MEDS ORDERED: MECLIZINE HCL 25 MG TABLET PO ONE (21:19)
[2019-04-26] MEDS ORDERED: DIAZEPAM 5 MG TABLET PO ONE ×2 (21:19→23:13)
[2019-04-26] MEDS ORDERED: ONDANSETRON HCL INJ/PF 4 MG/2 ML SDV IV ONE (21:20)
--- NOTE | 2019-04-26 21:21 | ER Document Report ---
ED Dizziness/Weakness - General Chief Complaint: dizzyness Stated Complaint: DIZZINESS Time Seen by Provider: 04/26/19 16:03 Primary Care Provider: TOBI GOLDEN PA-C [Primary Care Provider] - Follow up as needed Notes: Patient is a 53-year-old female that comes to the emergency department for chief complaint of dizziness. She states that she does have diagnosed dizziness where she frequently gets spinning sensations and vertigo, she states that this has been going on for a while intermittently, she states today it is worse. She states today she became nauseated with it. She already has frequent falls other she denies a fall within the past 3 weeks. She is not on a blood thinner. Past medical history includes lupus, Sjogren's, asthma, hypertension, hyperlipidemia, and she is treated with medications including Plaquenil and amitriptyline. TRAVEL OUTSIDE OF THE [place] IN LAST 30 DAYS: No - Related Data Allergies/Adverse Reactions: sertraline [From Zoloft] Allergy (Verified 04/26/19 21:39) Past Medical History - General Information source: Patient - Social History Smoking Status: Never Smoker Chew tobacco use (# tins/day): No Frequency of alcohol use: None Drug Abuse: None Lives with: Family Family History: None, Reviewed & Not Pertinent, CAD Patient has suicidal ideation: No Patient has homicidal ideation: No - Past Medical History Cardiac Medical History: Reports: Hx Hypercholesterolemia Denies: Hx Coronary Artery Disease, Hx Heart Attack, Hx Hypertension Pulmonary Medical History: Reports: Hx Asthma Denies: Hx Bronchitis, Hx COPD, Hx Pneumonia, Hx Tuberculosis Neurological Medical History: Denies: Hx Cerebrovascular Accident, Hx Seizures Endocrine Medical History: Reports: Hx Hypothyroidism Renal/ Medical History: Denies: Hx Peritoneal Dialysis Musculoskeletal Medical History: Reports Hx Arthritis Psychiatric Medical History: Reports: Hx Anxiety, Hx Depression Past Surgical History: Reports: Hx Hysterectomy - Immunizations Hx Diphtheria, Pertussis, Tetanus Vaccination: Yes Hx Pneumococcal Vaccination: 07/04/12 Review of Systems - Review of Systems Constitutional: See HPI EENT: No symptoms reported Cardiovascular: No symptoms reported Respiratory: No symptoms reported Gastrointestinal: No symptoms reported Genitourinary: No symptoms reported Female Genitourinary: No symptoms reported Musculoskeletal: No symptoms reported Skin: No symptoms reported Hematologic/Lymphatic: No symptoms reported Neurological/Psychological: See HPI Physical Exam - Vital signs Vitals: Temp Pulse Resp BP Pulse Ox 97.8 F 97 18 127/78 H 96 04/26/19 15:58 04/26/19 15:58 04/26/19 15:58 04/26/19 15:58 04/26/19 15:58 - Notes Notes: GENERAL: Alert, interacts well. No acute distress. HEAD: Normocephalic, atraumatic. EYES: Pupils equal, round, and reactive to light. Extraocular movements intact. ENT: Oral mucosa moist, tongue midline. Oropharynx unremarkable. Airway patent. NECK: Full range of motion. Supple. Trachea midline. LUNGS: Clear to auscultation bilaterally, no wheezes, rales, or rhonchi. No respiratory distress. HEART: Regular rate and rhythm. No murmur ABDOMEN: Soft, non-tender. Non-distended. EXTREMITIES: Moves all 4 extremities spontaneously. No edema, normal radial and dorsalis pedis pulses bilaterally. No cyanosis. BACK: no cervical, thoracic, lumbar midline tenderness. No saddle anesthesia, normal distal neurovascular exam. Moves all extremities in full range of motion. NEUROLOGICAL: Alert and oriented x3. Normal speech. Cranial nerves II through XII grossly intact. PSYCH: Somewhat flat affect but cooperative SKIN: Warm, dry, normal turgor. No rashes or lesions noted. Course - Re-evaluation Re-evalutation: Laboratory work-up unremarkable. Patient is still complaining of dizziness and vertigo beyond her normal baseline but this is still very common for her. states this is actually quite normal for her. I discussed with patient, because there is no neurological deficit and there is no new symptom we will not perform imaging of the brain at this time. She does not have a headache. She was treated with Valium, meclizine, Zofran. On reevaluation patient states she is actually much improved. We did get her up and ambulate, she ambulated per baseline without difficulty. She does states she feels much improved and is requesting to go home with therapy for her vertigo. She does have primary care follow-up. Discussed with patient and , she will be discharged with return precautions were discussed. They state appreciation and agreement. Stable at time of discharge. - Vital Signs Vital signs: Temp Pulse Resp BP Pulse Ox 98.1 F 80 11 L 120/67 97 04/26/19 23:57 04/26/19 23:15 04/26/19 23:01 04/26/19 23:15 04/26/19 23:01 - Laboratory Result Diagrams: 04/26/19 16:42 04/26/19 16:42 Laboratory results interpreted by me: 04/26/19 04/26/19 16:42 16:42 RDW 15.1 H Calcium 10.4 H Total Protein 8.3 H Albumin 5.1 H Discharge - Discharge Clinical Impression: Dizziness, Vertigo Condition: Stable Disposition: HOME, SELF-CARE Additional Instructions: Your laboratory work-up is reassuring. Your evaluation is reassuring as well. This appears to be an exacerbation of your regular vertigo. You have been provided Valium, meclizine, and Zofran to take for your symptoms, take as prescribed. Follow-up with your provider for additional evaluation and management. Return if you worsen including vomiting, inability to walk, fever, severe headache, or any other concerning or worsening symptoms. Prescriptions: Meclizine HCl 25 mg PO TID 7 Days #21 tab.chew Diazepam [Valium 5 mg Tablet] 1 - 2 tab PO TID PRN #12 tablet PRN Reason: Ondansetron [Zofran Odt 4 mg Tablet] 1 - 2 tab PO Q4H PRN #15 tab.rapdis PRN Reason: For Nausea/Vomiting Referrals: TOBI GOLDEN PA-C [Primary Care Provider] - Follow up as needed
[2019-04-26 23:17] VITALS: BP 134/73
== END 2019-04-26 23:57 | disposition home or self-care (01) ==
LOC: ER 15:18
DX: R42 Dizziness and giddiness (principal); R11.0 Nausea; J45.909 Unspecified asthma, uncomplicated; I10 Essential (primary) hypertension; F32.9 Major depressive disorder, single episode, unspecified; M35.00 Sjogren syndrome, unspecified; Z79.899 Other long term (current) drug therapy; Z88.8 Allergy status to other drugs, medicaments and biological substances
CPT/HCPCS: 93005; 99284; 96361; 96374; 36415; 82553; 82550; 85025; 85610; 85730; 80053; 81001; 84484; 93010; A9270 ×2; J2405; J7040

== ENCOUNTER → 2019-04-26 | Outpatient (CLI) | payer MEDICARE, OTHER ==
--- NOTE | 2019-04-27 10:13 | WOMENS IMAGING REPORT ---
EXAM DESCRIPTION: BILAT SCREENING MAMMO W/CAD COMPLETED DATE/TIME: 04/26/2019 3:03 pm REASON FOR STUDY: Z12.31 SCREENING MAMMO Z12.31 ENCNTR SCREEN MAMMOGRAM FOR MALIGNANT NEOPLASM OF B RE COMPARISON: [id number] EXAM PARAMETERS: Standard craniocaudal and mediolateral oblique views of each breast recorded using digital acquisition. Read with the assistance of CAD. .FORMER[facility] - [employer] Version 9.2 LIMITATIONS: None. FINDINGS: No suspicious masses, suspicious calcifications or architectural distortion. No areas of c oncern. IMPRESSION: Negative MAMMOGRAM. BIRADS 1 BREAST DENSITY: b. There are scattered areas of fibroglandular density. BIRAD: ASSESSMENT: 1 NEGATIVE RECOMMENDATION: ROUTINE SCREENING COMMENT: The patient has been notified of the results by letter per SA requirements. Additional no tification policies are in place for contacting patient with suspicious or incomplete findings. Quality ID #[id number]: The [employer] recommends an annual screening mammogram for women aged 40 years or over. This facility utilizes a reminder system to ensure that all patients receive reminder letters, and/or direct phone calls for appointments. This includes reminders for routine scr eening mammograms, diagnostic mammograms, or other Breast Imaging Interventions when appropriate. Th is patient will be placed in the appropriate reminder system. TECHNICAL DOCUMENTATION: FINDING NUMBER: (1) ASSESSMENT: (1) JOB ID: [id number] [employer]- All Rights Reserved Reading location - IP/workstation name: [email or web address]
== END ==
LOC: WI 14:45
PROVIDERS: ATTEND Physician Assistant
DX: Z12.31 Encounter for screening mammogram for malignant neoplasm of breast (principal)
CPT/HCPCS: 77067

== ENCOUNTER → 2019-07-11 | Outpatient (CLI) | payer MEDICARE, OTHER ==
--- NOTE | 2019-07-12 15:24 | RADIOLOGY REPORT (SQ) ---
EXAM DESCRIPTION: MRI LUMBAR SPINE WITHOUT COMPLETED DATE/TIME: 07/11/2019 6:55 pm REASON FOR STUDY: (M51.27)OTHER INTERVERTEBRAL DISC DISPLACEMENT, LUMBOSACRAL REGION M51.27 OTHER I NTERVERTEBRAL DISC DISPLACEMENT, LUMBOSACRAL R COMPARISON: 02/01/2015 TECHNIQUE: Sagittal and Axial imaging includes T1, T2, STIR and gradient echo sequences. Coronal T2/ HASTE imaging. LIMITATIONS: Motion. FINDINGS: VISUALIZED UPPER ABDOMEN: Limited evaluation. No acute or suspicious findings suggested. SEGMENTATION: No transitional anatomy. The lowest well-developed disc space is labeled L5-S1. ALIGNMENT: Anatomic. VERTEBRAE: Intact. BONE MARROW: Normal. No marrow replacement or reactive changes. DISC SIGNAL: Desiccation multiple levels. POSTERIOR ELEMENTS: Generally intact. No pars defect evident. HARDWARE: None in the spine. CORD AND CONUS: Normal in size and signal intensity. Conus at the appropriate level. SOFT TISSUES: No aortic aneurysm seen. No bulky retroperitoneal adenopathy or mass. No paraspinal mas s or fluid. L1-L2: No significant spinal stenosis or exit foraminal stenosis. L2-L3: Disc bulge. No significant stenosis. L3-L4: No significant spinal stenosis or exit foraminal stenosis. L4-L5: No significant spinal stenosis or exit foraminal stenosis. L5-S1: Small annular fissure. Mild facet arthropathy. Mild right neural foraminal narrowing. LOWER THORACIC: Incompletely imaged. No stenosis seen. SACRUM: Visualized upper sacrum intact. OTHER: No other significant findings. IMPRESSION: Mild degenerative changes at L5-S 1. No significant spinal stenosis. TECHNICAL DOCUMENTATION: JOB ID: [id number] [employer]- All Rights Reserved Reading location - IP/workstation name: [email or web address]
== END ==
LOC: RAD 17:51
PROVIDERS: ATTEND Physician Assistant
DX: M51.27 Other intervertebral disc displacement, lumbosacral region (principal)
CPT/HCPCS: 72148

== ENCOUNTER → 2019-07-24 | Outpatient (CLI) | payer MEDICARE, OTHER ==
--- NOTE | 2019-07-24 15:56 | RADIOLOGY REPORT (SQ) ---
EXAM DESCRIPTION: FOOT RIGHT COMPLETE COMPLETED DATE/TIME: 07/24/2019 10:30 am REASON FOR STUDY: RIGHT HEEL PAIN (M25.571) M25.571 PAIN IN RIGHT ANKLE AND JOINTS OF RIGHT FOOT COMPARISON: None. NUMBER OF VIEWS: Three views. TECHNIQUE: AP, lateral and oblique without weight bearing radiographic images acquired of the right foot. LIMITATIONS: None. FINDINGS: MINERALIZATION: Normal. BONES: No acute fracture or dislocation. No worrisome bone lesions. No significant osteophytes. JOINTS: No erosions. No maryan-articular osteopenia. No chondrocalcinosis. SOFT TISSUES: No swelling. No calcifications. OTHER: No other significant finding. IMPRESSION: NEGATIVE STUDY OF THE RIGHT FOOT. NO EXPLANATION FOR PAIN. TECHNICAL DOCUMENTATION: JOB ID: [id number] [employer]- All Rights Reserved Reading location - IP/workstation name: [email or web address]
== END ==
LOC: RAD 10:07
PROVIDERS: ATTEND Physician Assistant
DX: M25.571 Pain in right ankle and joints of right foot (principal)

== ENCOUNTER 2020-03-25 20:51 | Emergency (ER) | payer MEDICARE, OTHER ==
[2020-03-25] MEDS ORDERED: NORMAL SALINE 500 ML IV ONE (23:36)
[2020-03-25] MEDS ORDERED: ONDANSETRON 4 MG TAB.RAPDIS PO ONE (23:37)
--- NOTE | 2020-03-25 23:40 | ER Document Report ---
ED Medical Screen (RME) - General Chief Complaint: Headache Stated Complaint: HEADACHE,SHORTNESS OF BREATH,NAUSEA Time Seen by Provider: 03/25/20 23:35 Primary Care Provider: MIKIE CABA PA-C [Primary Care Provider] - Follow up as needed Mode of Arrival: Wheelchair Information source: Patient Notes: 54-year-old female presented to ED for headache across the forehead down the back of the head shortness of breath nausea but no vomiting sinus pain and pressure frequent and today she is having chest pain with her "heart flip flopping "she states she is a former smoker does not drink or use any drugs. She does have a history of lupus bronchitis and arthritis and is on oxycodone for her pain. States she is not taking any other pain medications today. [place] nt states she was seen by primary care earlier and started on amoxicillin for a sinus infection. I have greeted and performed a rapid initial assessment of this patient. A comprehensive ED assessment and evaluation of the patient, analysis of test results and completion of medical decision making process will be conducted by an additional ED providers. TRAVEL OUTSIDE OF THE [place] IN LAST 30 DAYS: No - Related Data Allergies/Adverse Reactions: sertraline [From Zoloft] Allergy (Verified 04/26/19 21:39) Past Medical History - Past Medical History Cardiac Medical History: Reports: Hx Hypercholesterolemia Denies: Hx Coronary Artery Disease, Hx Heart Attack, Hx Hypertension Pulmonary Medical History: Reports: Hx Asthma Denies: Hx Bronchitis, Hx COPD, Hx Pneumonia, Hx Tuberculosis Neurological Medical History: Denies: Hx Cerebrovascular Accident, Hx Seizures Endocrine Medical History: Reports: Hx Hypothyroidism Renal/ Medical History: Denies: Hx Peritoneal Dialysis Musculoskeltal Medical History: Reports Hx Arthritis Psychiatric Medical History: Reports: Hx Anxiety, Hx Depression Past Surgical History: Reports: Hx Hysterectomy - Immunizations Hx Diphtheria, Pertussis, Tetanus Vaccination: Yes Physical Exam - Vital signs Vitals: Temp Pulse Resp BP Pulse Ox 97.8 F 85 18 132/74 H 95 03/25/20 21:45 03/25/20 21:45 03/25/20 21:45 03/25/20 21:45 03/25/20 21:45 Course - Vital Signs Vital signs: Temp Pulse Resp BP Pulse Ox 97.8 F 85 18 132/74 H 95 03/25/20 21:45 03/25/20 21:45 03/25/20 21:45 03/25/20 21:45 03/25/20 21:45 Doctor's Discharge - Discharge Referrals: MIKIE CABA PA-C [Primary Care Provider] - Follow up as needed
[2020-03-26 00:29] LABS: ABSOLUTE EOSINOPHILS # (AUTO) 0.1 10^3/uL (0.0-0.6); ABSOLUTE LYMPHOCYTES (AUTO) 1.9 10^3/uL (0.5-4.7); ABSOLUTE MONOCYTES (AUTO) 0.7 10^3/uL (0.1-1.4); ABSOLUTE NEUT (AUTO) 6.6 10^3/uL (1.7-8.2); BASOPHILS % (AUTO) 0.3 % (0-2); EOSINOPHILS % (AUTO) 0.6 % (0-6); HEMATOCRIT 38.1 % (36.0-47.0); HEMOGLOBIN 12.8 g/dL (12.0-15.5); LYMPHOCYTES % (AUTO) 20.4 % (13-45); MEAN CORPUSCULAR HEMOGLOBIN 29.5 pg (27.0-33.4); MEAN CORPUSCULAR HGB CONC 33.7 g/dL (32.0-36.0); MEAN CORPUSCULAR VOLUME 88 fl (80-97); MONOCYTES % (AUTO) 7.5 % (3-13); PLATELET COUNT 300 10^3/uL (150-450); RED BLOOD COUNT 4.35 10^6/uL (3.72-5.28); RED CELL DISTRIBUTION WIDTH 13.7 % (11.5-14.0); SEGMENTED NEUTROPHILS % (AUTO) 71.2 % (42-78); TOTAL CELLS COUNTED % (AUTO) 100 %; WHITE BLOOD COUNT 9.3 10^3/uL (4.0-10.5)
[2020-03-26 00:35] LABS: APPEARANCE,URINE CLEAR; BILIRUBIN,URINE NEGATIVE (NEGATIVE); COLOR,URINE STRAW; GLUCOSE, URINE NEGATIVE (NEGATIVE); KETONES,URINE NEGATIVE (NEGATIVE); LEUKOCYTE ESTERASE,URINE TRACE (NEGATIVE); NITRITE,URINE NEGATIVE (NEGATIVE); PROTEIN,URINE NEGATIVE (NEGATIVE); URINE SPECIFIC GRAVITY 1.004; UROBILINOGEN,URINE NEGATIVE mg/dL (<2.0)
[2020-03-26 00:53] LABS: ALBUMIN 4.7 g/dL (3.5-5.0); ALKALINE PHOSPHATASE 69 U/L (38-126); ANION GAP 9 (5-19); ASPARTATE AMINO TRANSFERASE 35 U/L (14-36); BILIRUBIN,DIRECT 0.4 mg/dL (0.0-0.4); BILIRUBIN,TOTAL 0.6 mg/dL (0.2-1.3); BLOOD UREA NITROGEN 34 mg/dL (7-20); CALCIUM 10.6 mg/dL (8.4-10.2); CARBON DIOXIDE 23 mmol/L (22-30); CHLORIDE 101 mmol/L (98-107); CREATINE KINASE 159 U/L (30-135); GLUCOSE 94 mg/dL (75-110)
[2020-03-26 00:58] LABS: POTASSIUM 3.8 mmol/L (3.6-5.0)
[2020-03-26] MEDS ORDERED: ONDANSETRON HCL INJ/PF 4 MG/2 ML SDV ONE (01:38)
--- NOTE | 2020-03-26 01:38 | EKG REPORT ---
SEVERITY:- ABNORMAL ECG - SINUS RHYTHM NONSPECIFIC INTRAVENTRICULAR CONDUCTION DELAY : Confirmed by: Kiara Olivas MD 26-Mar-2020 01:37:16
[2020-03-26] MEDS ORDERED: ONDANSETRON 4 MG TAB.RAPDIS ONE (01:43)
--- NOTE | 2020-03-26 01:57 | RADIOLOGY REPORT (SQ) ---
CHEST X-RAY 1 VIEW on 03/26/2020 at 1:24 AM CLINICAL INDICATION: Syncope COMPARISON: 02/16/2019 FINDINGS: The lungs are clear. Cardiac, hilar and mediastinal contours are within normal limits. Pulmonary vascularity is within normal limits. No bony abnormality is noted. IMPRESSION: No active disease.
--- NOTE | 2020-03-26 02:12 | ER Document Report ---
ED General - General Chief Complaint: Headache Stated Complaint: HEADACHE,SHORTNESS OF BREATH,NAUSEA Time Seen by Provider: 03/25/20 23:35 Primary Care Provider: MIKIE CABA PA-C [Primary Care Provider] - Follow up as needed Mode of Arrival: Wheelchair Notes: Patient is a 54-year-old female that comes to the emergency department for chief complaint of 4 days of sick symptoms. She states she started off with congestion, she started develop sinus pressure and pain, she developed a cough, she has had intermittent headaches, she states she has had more triggered migraines than usual from her baseline migraine, she states her Imitrex was not working earlier so she came in for this as well. She reports photophobia and nausea but denies vomiting, headache is located in the front and top of her head, she denies neck pain or stiffness. She denies fever, shortness of breath, chest pain. She states she saw her primary care and was started on Augmentin for sinusitis, she has had a couple of doses of this. She states she has a history of asthma, frequent bronchitis, states she smoked briefly almost 30 years ago, she is not on home oxygen. She has a history of lupus and is curre ntly on Plaquenil. She has chronic pain management and she is on oxycodone for this. TRAVEL OUTSIDE OF THE [place] IN LAST 30 DAYS: No - Related Data Allergies/Adverse Reactions: sertraline [From Zoloft] Allergy (Verified 04/26/19 21:39) Past Medical History - General Information source: Patient - Social History Smoking Status: Never Smoker Frequency of alcohol use: None Drug Abuse: None Lives with: Family Family History: None, Reviewed & Not Pertinent, CAD - Past Medical History Cardiac Medical History: Reports: Hx Hypercholesterolemia Denies: Hx Coronary Artery Disease, Hx Heart Attack, Hx Hypertension Pulmonary Medical History: Reports: Hx Asthma Denies: Hx Bronchitis, Hx COPD, Hx Pneumonia, Hx Tuberculosis Neurological Medical History: Denies: Hx Cerebrovascular Accident, Hx Seizures Endocrine Medical History: Reports: Hx Hypothyroidism Renal/ Medical History: Denies: Hx Peritoneal Dialysis Musculoskeletal Medical History: Reports Hx Arthritis Psychiatric Medical History: Reports: Hx Anxiety, Hx Depression Past Surgical History: Reports: Hx Hysterectomy - Immunizations Hx Diphtheria, Pertussis, Tetanus Vaccination: Yes Hx Pneumococcal Vaccination: 07/04/12 Review of Systems - Review of Systems Constitutional: See HPI EENT: See HPI Cardiovascular: No symptoms reported Respiratory: See HPI Gastrointestinal: No symptoms reported Genitourinary: No symptoms reported Female Genitourinary: No symptoms reported Musculoskeletal: No symptoms reported Skin: No symptoms reported Hematologic/Lymphatic: No symptoms reported Neurological/Psychological: See HPI Physical Exam - Vital signs Vitals: Temp Pulse Resp BP Pulse Ox 97.8 F 85 18 132/74 H 95 03/25/20 21:45 03/25/20 21:45 03/25/20 21:45 03/25/20 21:45 03/25/20 21:45 - Notes Notes: GENERAL: Alert, interacts well. No acute distress. Talkative and well-appearing HEAD: Normocephalic, atraumatic. EYES: Pupils equal, round, and reactive to light. Extraocular movements intact. ENT: Oral mucosa moist, tongue midline. Oropharynx unremarkable. Airway patent. Nares congested, there is some tenderness over the frontal sinuses but this is not severe, ear canals unremarkable, TM's intact. NECK: Full range of motion. Supple. Trachea midline. No lymphadenopathy. No nuchal rigidity. LUNGS: Clear to auscultation bilaterally, no wheezes, rales, or rhonchi. No respiratory distress. Non-tender chest wall. HEART: Regular rate and rhythm. No murmur ABDOMEN: Soft, non-tender. Non-distended. EXTREMITIES: Moves all 4 extremities spontaneously. No edema, normal radial and dorsalis pedis pulses bilaterally. No cyanosis. BACK: no cervical, thoracic, lumbar midline tenderness. No saddle anesthesia, normal distal neurovascular exam. Moves all extremities in full range of motion. NEUROLOGICAL: Alert and oriented x3. Normal speech. Cranial nerves II through XII grossly intact. Strength 5/5 in all extremities. PSYCH: Normal affect, normal mood. SKIN: Warm, dry, normal turgor. No rashes or lesions noted. Course - Re-evaluation Re-evalutation: Patient does have sinus discomfort on exam and with palpation, she does have some sinus congestion, she has no nuchal rigidity or neck pain, she does not appear to be in distress. Vital signs unremarkable. Patient states that she has a history of headaches and she was unable to control her headache with Imitr ex. No thunderclap headache, symptoms were not maximal at onset, based on this, her unremarkable neuro exam, and a well appearance I have a very low suspicion of concerning acute intracranial abnormality. CBC nonspecific, chemistry unremarkable, chest x-ray reviewed and unremarkable. QTC is slightly prolonged so additional nausea medication was avoided in treating her headache. On evaluation after treatments patient smiling, alert, states her headache is completely gone, states she feels great, expresses gratitude, states she is ready to leave. We did discuss options and because of her generalized sick symptoms she was tested for COVID-19. Discussed quarantine, expectations, follow-up, return precautions. Patient states appreciation and agreement. - Vital Signs Vital signs: Temp Pulse Resp BP Pulse Ox 97.5 F 74 14 115/70 97 03/26/20 04:36 03/26/20 04:36 03/26/20 04:36 03/26/20 04:36 03/26/20 04:36 - Laboratory Result Diagrams: 03/26/20 00:10 03/26/20 00:10 Laboratory results interpreted by me: 03/26/20 03/26/20 00:10 00:10 Sodium 132.6 L BUN 34 H Est GFR (MDRD) Non-Af 56 L Calcium 10.6 H Creatine Kinase 159 H Ur Leukocyte Esterase TRACE H - EKG Interpretation by Me Additional EKG results interpreted by me: EKG shows sinus rhythm at a rate of 79, QTc prolonged at 510, MI interval 160, normal axis, no T wave inversions or systemic changes in consecutive leads. Nonspecific intraventricular conduction delay. Discharge - Discharge Clinical Impression: Cough, Person under investigation for COVID-19 Headache Qualifiers: Headache type: unspecified Headache chronicity pattern: acute headache Intractability: not intractable Qualified Code(s): R51 - Headache Sinusitis Qualifiers: Sinusitis location: frontal Chronicity: acute Recurrence: not specified as recurrent Qualified Code(s): J01.10 - Acute frontal sinusitis, unspecified Condition: Stable Disposition: HOME, SELF-CARE Additional Instructions: Your evaluation does not show any concerning findings at this time. You have been tested for COVID-19, you will be contacted with your results, please quarantine while you await this. See additional instructions below. You can continue your Augmentin for your sinusitis, you have been treated with Decadron to help with your symptoms. Continue current medications. Follow-up with your primary care for additional management. Return if you worsen including difficulty breathing, spiking fever, severe headache, uncontrolled vomiting, or any other concerning or worsening symptoms. As a person under investigation for COVID-19, the [place] Department of Health and Human Services (division on public health) advises you to adhere to the following guidance until your test results are reported to you. If your test result is positive, you will receive additional information from your provider and your local health department at that time. Remain at home until you are cleared by the health provider or public health authorities. Keep a log of visitors to your home, notify any visitors to your home of your isolation status. If you plan to move to a new address or leave the [facility], notify the local health department in your County. Call your Doctor or seek care if you have an urgent medical need. Before seeking medical care, call him to get instructions from the provider before arriving at the medical office, clinic, or hospital. Notify them that you are being tested for the virus (COVID-19) so that arrangements can be made, as necessary, to prevent transmission to others in the healthcare setting. Next, notify the local health department in your county. If a medical emergency arises and you need to call 911, inform the first responders that you are being tested for the virus that causes COVID-19. Next, notify the local health department in your county. Referrals: MIKIE ACBA PA-C [Primary Care Provider] - Follow up as needed
[2020-03-26] MEDS ORDERED: DEXAMETHASONE SOD PHOS INJ 10 MG/1 ML VIAL IV ONE (02:27)
[2020-03-26] MEDS ORDERED: DIPHENHYDRAMINE HCL 50 MG/ML VIAL IV ONE (02:27)
[2020-03-26] MEDS ORDERED: MORPHINE SULFATE 10 MG/ML INJ IV ONE (02:28)
[2020-03-26 04:49] VITALS: BP 115/70
== END 2020-03-26 04:49 | disposition home or self-care (01) ==
LOC: ER 20:51
DX: R05 Cough (principal); G43.909 Migraine, unspecified, not intractable, without status migrainosus; J01.10 Acute frontal sinusitis, unspecified; R11.0 Nausea; J45.909 Unspecified asthma, uncomplicated; G89.29 Other chronic pain; Z79.891 Long term (current) use of opiate analgesic; Z79.899 Other long term (current) drug therapy; Z87.891 Personal history of nicotine dependence; Z88.8 Allergy status to other drugs, medicaments and biological substances; Z20.828 Contact with and (suspected) exposure to other viral communicable diseases
CPT/HCPCS: 93005; 99285; 96361; 96374; 96375; 36415; 82550; 83690; 85025; 80053; 81001; 84484; 71045; 93010; U0003; J1200; A9270; J2270; J7040; J1100; C9803; 87086; 87635; S0119

== ENCOUNTER → 2020-06-24 | Outpatient (CLI) | payer MEDICARE, OTHER ==
--- NOTE | 2020-06-24 15:18 | WOMENS IMAGING REPORT ---
EXAM DESCRIPTION: 3D SCREENING MAMMO BILAT IMAGES COMPLETED DATE/TIME: 06/24/2020 1:42 pm REASON FOR STUDY: Z12.31 ENCNTR SCREEN MAMMOGRAM FOR MALIGNANT NEOPLASM OF BREAST Z12.31 ENCNTR SCR EEN MAMMOGRAM FOR MALIGNANT NEOPLASM OF KRIS COMPARISON: None. EXAM PARAMETERS: Views: Standard craniocaudal and mediolateral oblique views of each breast recorded using digital acquisition and breast tomosynthesis. Read with the assistance of CAD. .[facility] - [employer] Version 9.2 LIMITATIONS: None. FINDINGS: No suspicious masses, suspicious calcifications or architectural distortion. No areas of c oncern. IMPRESSION: NEGATIVE MAMMOGRAM. BIRADS 1. BREAST DENSITY: b. There are scattered areas of fibroglandular density. BIRAD: ASSESSMENT: 1 NEGATIVE RECOMMENDATION: ROUTINE SCREENING COMMENT: The patient has been notified of the results by letter per MQSA requirements. Additional no tification policies are in place for contacting patient with suspicious or incomplete findings. Quality ID #[id number]: The [employer] recommends an annual screening mammogram for women aged 40 years or over. This facility utilizes a reminder system to ensure that all patients receive reminder letters, and/or direct phone calls for appointments. This includes reminders for routine scr eening mammograms, diagnostic mammograms, or other Breast Imaging Interventions when appropriate. Th is patient will be placed in the appropriate reminder system. TECHNICAL DOCUMENTATION: FINDING NUMBER: (1) ASSESSMENT: (1) JOB ID: [id number] 2010 [employer]- All Rights Reserved Reading location - IP/workstation name: [email or web address]
== END ==
LOC: WI 14:17
PROVIDERS: ATTEND Physician Assistant
DX: Z12.31 Encounter for screening mammogram for malignant neoplasm of breast (principal)
CPT/HCPCS: 77063; 77067